=== PATIENT | female | born 1935 | race Caucasian/White ===

== ENCOUNTER 2019-10-04 19:42 | Inpatient (IN) | payer MEDICARE, BC ==
[2019-10-04] MEDS ORDERED: IPRATROPIUM-ALBUTEROL 3 ML NEB INHALATION STA ×2 (20:00→20:27)
--- NOTE | 2019-10-04 20:14 | XR ---
EXAMINATION TYPE: XR chest 2V DATE OF EXAM: 10/04/2019 COMPARISON: NONE HISTORY: History of COPD and atrial fibrillation with shortness of breath TECHNIQUE: Frontal and lateral views of the chest are obtained. FINDINGS: There is cardiomegaly with dual lead pacemaker and atherosclerotic aorta. There is chronic parenchymal change bilaterally with small bilateral pleural effusions and mild interstitial edema. The osseous structures are intact. IMPRESSION: Suspect CHF exacerbation as there is cardiomegaly with mild interstitial edema and small bilateral pleural effusions on background chronic parenchymal change. Correlate clinically.
[2019-10-04] MEDS ORDERED: FUROSEMIDE 10 MG/ML 4 ML VIAL IV STA ×2 (20:27→22:03)
[2019-10-04] MEDS ORDERED: methylPREDNISolone SOD SUCCI 125 MG/2 ML VIAL IV STA (20:27)
[2019-10-04] MEDS ORDERED: IPRATROPIUM 0.5 MG/2.5 ML NEBU INHALATION STA (20:33)
[2019-10-04] MEDS ORDERED: ALBUTEROL NEBULIZED 2.5 MG/3 ML INHALATION STA (20:33)
--- NOTE | 2019-10-04 20:50 | ED ---
General Adult HPI - General Chief complaint: Abdominal Pain Stated complaint: abd pain Source: patient, EMS, RN notes reviewed, old records reviewed Mode of arrival: EMS Limitations: no limitations - History of Present Illness Initial comments: 83-year-old female patient past medical history COPD, hypertension, status post AICD, CHF presents to ED for evaluation after transfer from [facility]. Patient has had epigastric pain for the last 4 days. Patient had evaluation at [facility] where she underwent a CT abdomen and pelvis which displayed findings consistent with acute cholecystitis. Patient was initiated on Zosyn at that apartment. Upon evaluation in ED patient is declining abdominal pain this time however she does report that she has developed some shortness of breath which began getting worse the last 2 hours. Patient does use regular breathing treatments for her COPD has not had any today. Denies any chest pain. Denies any other complaints at this time. Systemic: Pt denies fatigue, fever/chills, rash. Pt denies weakness, night sweats, weight loss. Neuro: Pt denies headache, visual disturbances, syncope or pre-syncope. HEENT: Pt denies ocular discharge or irritation, otalgia, rhinorrhea, pharyngitis or notable lymphadenopathy. Cardiopulmonary: Pt denies chest pain, heart palpitations. Abdominal/GI: Pt denies abdominal pain, n/v/d. : Pt denies dysuria, burning w/ urination, frequency/urgency. Denies new onset urinary or bowel incontinence. MSK: Pt denies myalgia, loss of strength or function in extremities. Neuro: Pt denies new onset weakness, paresthesias. - Related Data Home Medications Medication Instructions Recorded Confirmed Diltiazem HCl [Diltiazem HCl 24Hr 180 mg PO DAILY 10/04/19 10/04/19 ER] Flecainide Acetate [Tambocor] 100 mg PO Q12HR 10/04/19 10/04/19 Furosemide [Lasix] 40 mg PO DAILY 10/04/19 10/04/19 Rivaroxaban [Xarelto] 15 mg PO W/SUPPER 10/04/19 10/04/19 Allergies Allergy/AdvReac Type Severity Reaction Status Date / Time No Known Allergies Allergy Verified 10/04/19 22:00 Review of Systems ROS Statement: Those systems with pertinent positive or pertinent negative responses have been documented in the HPI. ROS Other: All systems not noted in ROS Statement are negative. Past Medical History Past Medical History: COPD, Hypertension History of Any Multi-Drug Resistant Organisms: None Reported Additional Past Surgical History / Comment(s): hysterectomy, tonsils Past Psychological History: No Psychological Hx Reported Smoking Status: Former smoker Past Alcohol Use History: None Reported Past Drug Use History: None Reported General Exam - General Exam Comments Initial Comments: Constitutional: NAD, AOX3, Pt has pleasant affect. HEENT: NC/AT, trachea midline. External ears appear normal, without discharge. Mucous membranes moist. Eyes PERRLA, EOM intact. There is no scleral icterus. No pallor noted. Cardiopulmonary: RRR, no murmurs, rubs or gallops, no JVD noted. Wheezing noted in anterior and posterior lung calle. Crackles noted at bases. No peripheral edema. Abdominal exam: Abdomen soft and non-distended. Abdomen mildly tender in epigastric region. Bowel sounds active in LLQ. No hepatosplenomegaly. No ecchymosis Neuro: CN II-XII grossly intact. No nuchal rigidity. No raccon eyes, no bear sign, no hemotympanum. No cervical spinal tenderness. MSK: No posterior calf tenderness bilaterally, homans sign negative bilaterally. Posterior tibialis and radial pulse +2 bilaterally. Sensation intact in upper and lower extremities. Full active ROM in upper and lower extremities, 5/5 stregnth. Limitations: no limitations Course Vital Signs 10/04/19 10/04/19 10/04/19 19:47 19:58 20:11 Temperature 98.5 F Pulse Rate 70 90 Respiratory 18 18 Rate Blood Pressure 137/88 O2 Sat by Pulse 92 L Oximetry 10/04/19 10/04/19 10/04/19 20:21 20:41 21:16 Temperature Pulse Rate 86 89 77 Respiratory Rate Blood Pressure O2 Sat by Pulse Oximetry 10/04/19 10/04/19 21:47 22:25 Temperature Pulse Rate 70 70 Respiratory 18 24 Rate Blood Pressure 143/87 138/81 O2 Sat by Pulse 89 L 97 Oximetry Medical Decision Making - Medical Decision Making 83-year-old female patient presents to ED after transfer from [facility] for acute cholecystitis diagnosed by CAT scan. Upon evaluation patient for further epigastric pain has resolved she only has mild tenderness to the epigastric region however her shortness of breath has worsened. Patient has a history of COPD as well as congestive heart failure. She will signs when the low 90s work of breathing did increase. Patient denies any chest pain. Patient is an AICD paced rhythm. Laboratory investigations revealed leukocytosis. Transaminitis.: A 1.38 which appears consistent with prior laboratory investigations from [facility]. BNP was 6280. Chest x-ray consistent with congestive heart failure exacerbation. Patient was administered breathing treatments with minimal improvement. Patient was placed on BiPAP for she had significant improvement. Continues to deny any chest pain. Patient was also administered steroids, Lasix. Patient was continued on Zosyn. Patient be admitted for further evaluation. Case discussed and pt seen by Dr. Whitney. - Lab Data Result diagrams: 10/04/19 20:37 10/04/19 20:37 Lab Results 10/04/19 10/04/19 10/04/19 Range/Units 20:37 20:37 20:37 WBC 14.7 H (3.8-10.6) k/uL RBC 4.97 (3.80-5.40) m/uL Hgb 14.3 (11.4-16.0) gm/dL Hct 45.4 (34.0-46.0) % MCV 91.4 (80.0-100.0) fL MCH 28.8 (25.0-35.0) pg MCHC 31.5 (31.0-37.0) g/dL RDW 13.8 (11.5-15.5) % Plt Count 278 (150-450) k/uL Neutrophils % 74 % Lymphocytes % 14 % Monocytes % 9 % Eosinophils % 1 % Basophils % 1 % Neutrophils # 10.8 H (1.3-7.7) k/uL Lymphocytes # 2.0 (1.0-4.8) k/uL Monocytes # 1.4 H (0-1.0) k/uL Eosinophils # 0.2 (0-0.7) k/uL Basophils # 0.1 (0-0.2) k/uL PT 13.5 H (9.0-12.0) sec INR 1.4 H (<1.2) APTT 25.5 (22.0-30.0) sec Sodium 131 L (137-145) mmol/L Potassium 4.4 (3.5-5.1) mmol/L Chloride 98 (98-107) mmol/L Carbon Dioxide 19 L (22-30) mmol/L Anion Gap 14 mmol/L BUN 29 H (7-17) mg/dL Creatinine 1.38 H (0.52-1.04) mg/dL Est GFR (CKD-EPI)AfAm 41 (>60 ml/min/1.73 sqM) Est GFR (CKD-EPI)NonAf 36 (>60 ml/min/1.73 sqM) Glucose 108 H (74-99) mg/dL Calcium 8.6 (8.4-10.2) mg/dL Total Bilirubin 1.0 (0.2-1.3) mg/dL AST 106 H (14-36) U/L ALT 132 H (4-34) U/L Alkaline Phosphatase 148 H (38-126) U/L Troponin I (0.000-0.034) ng/mL NT-Pro-B Natriuret Pep pg/mL Total Protein 6.4 (6.3-8.2) g/dL Albumin 3.9 (3.5-5.0) g/dL Lipase (23-300) U/L 10/04/19 10/04/19 10/04/19 Range/Units 20:37 20:37 20:37 WBC (3.8-10.6) k/uL RBC (3.80-5.40) m/uL Hgb (11.4-16.0) gm/dL Hct (34.0-46.0) % MCV (80.0-100.0) fL MCH (25.0-35.0) pg MCHC (31.0-37.0) g/dL RDW (11.5-15.5) % Plt Count (150-450) k/uL Neutrophils % % Lymphocytes % % Monocytes % % Eosinophils % % Basophils % % Neutrophils # (1.3-7.7) k/uL Lymphocytes # (1.0-4.8) k/uL Monocytes # (0-1.0) k/uL Eosinophils # (0-0.7) k/uL Basophils # (0-0.2) k/uL PT (9.0-12.0) sec INR (<1.2) APTT (22.0-30.0) sec Sodium (137-145) mmol/L Potassium (3.5-5.1) mmol/L Chloride (98-107) mmol/L Carbon Dioxide (22-30) mmol/L Anion Gap mmol/L BUN (7-17) mg/dL Creatinine (0.52-1.04) mg/dL Est GFR (CKD-EPI)AfAm (>60 ml/min/1.73 sqM) Est GFR (CKD-EPI)NonAf (>60 ml/min/1.73 sqM) Glucose (74-99) mg/dL Calcium (8.4-10.2) mg/dL Total Bilirubin (0.2-1.3) mg/dL AST (14-36) U/L ALT (4-34) U/L Alkaline Phosphatase (38-126) U/L Troponin I 0.015 (0.000-0.034) ng/mL NT-Pro-B Natriuret Pep 6280 pg/mL Total Protein (6.3-8.2) g/dL Albumin (3.5-5.0) g/dL Lipase 86 (23-300) U/L Disposition Clinical Impression: CHF exacerbation, Acute cholecystitis Disposition: ADMITTED IP TO THIS HOSP Condition: Serious Is patient prescribed a controlled substance at d/c from ED?: No
[2019-10-04 20:57] LABS: Basophils # (A) 0.1 k/uL (0-0.2); Basophils % (A) 1 %; Eosinophils # (A) 0.2 k/uL (0-0.7); Eosinophils % (A) 1 %; HCT 45.4 % (34.0-46.0); HGB 14.3 gm/dL (11.4-16.0); Lymphocytes % (A) 14 %; MCH 28.8 pg (25.0-35.0); MCHC 31.5 g/dL (31.0-37.0); MCV 91.4 fL (80.0-100.0); Mean Platelet Volume 8.8; Monocytes # (A) 1.4 k/uL (0-1.0); Monocytes % (A) 9 %; Neutrophils # (A) 10.8 k/uL (1.3-7.7); Neutrophils % (A) 74 %; Platelet Count 278 k/uL (150-450); RBC 4.97 m/uL (3.80-5.40); RDW 13.8 % (11.5-15.5); WBC 14.7 k/uL (3.8-10.6)
[2019-10-04 21:08] LABS: INR 1.4 (<1.2); Partial Thromboplastin Time 25.5 sec (22.0-30.0); Prothrombin Time 13.5 sec (9.0-12.0)
[2019-10-04 21:09] LABS: Albumin 3.9 g/dL (3.5-5.0); Calcium 8.6 mg/dL (8.4-10.2); Potassium 4.4 mmol/L (3.5-5.1); Total Protein 6.4 g/dL (6.3-8.2)
[2019-10-04] MEDS ORDERED: PIPERACILLIN-TAZOBACTAM 3.375 GM in SODIUM CHLORIDE 0.9% 100 ML IVPB STA (21:51)
[2019-10-04] MEDS ORDERED: NITROGLYCERIN SL TABS 0.4 MG TAB SUBLINGUAL STA (22:05)
[2019-10-05] MEDS: PIPERACILLIN-TAZOBACTAM 3.375 GM in SODIUM CHLORIDE 0.9% 100 ML IVPB SCH ×4 (04:22→23:05)
[2019-10-05 06:37] LABS: Basophils % (A) 0 %; Eosinophils # (A) 0.1 k/uL (0-0.7); Eosinophils % (A) 1 %; HCT 39.8 % (34.0-46.0); HGB 13.2 gm/dL (11.4-16.0); Hypochromasia Slight; Lymphocytes # (A) 0.4 k/uL (1.0-4.8); Lymphocytes % (A) 6 %; MCH 30.3 pg (25.0-35.0); MCV 91.8 fL (80.0-100.0); Mean Platelet Volume 8.7; Monocytes # (A) 0.2 k/uL (0-1.0); Monocytes % (A) 2 %; Neutrophils # (A) 5.9 k/uL (1.3-7.7); Neutrophils % (A) 91 %; Platelet Count 212 k/uL (150-450); RBC 4.34 m/uL (3.80-5.40); RDW 13.9 % (11.5-15.5); WBC 6.5 k/uL (3.8-10.6)
[2019-10-05 06:49] LABS: Albumin 3.2 g/dL (3.5-5.0); Calcium 7.9 mg/dL (8.4-10.2); Potassium 3.8 mmol/L (3.5-5.1); Total Bilirubin 0.7 mg/dL (0.2-1.3); Total Protein 5.5 g/dL (6.3-8.2)
--- NOTE | 2019-10-05 07:31 | XR ---
EXAMINATION TYPE: XR chest 2V DATE OF EXAM: 10/05/2019 COMPARISON: Chest x-ray from yesterday. HISTORY: History of COPD and atrial fibrillation with pain, cholecystitis. TECHNIQUE: Frontal and lateral views of the chest are obtained. FINDINGS: There is cardiomegaly with dual lead pacemaker and atherosclerotic thoracic aorta redemons trated. There is chronic parenchymal change bilaterally with small right greater than left bilateral pleural effusions and associated bibasilar atelectasis and/or infiltrate. Multilevel spurring in the spine greatest in the thoracolumbar junction is present IMPRESSION: Persistent chronic parenchymal change and cardiomegaly with small to tiny right greater than left pleural effusions and associated patchy bibasilar acute atelectasis and/or infiltrates are all redemonstrated.
[2019-10-05] MEDS ORDERED: FUROSEMIDE 40 MG TAB PO SCH (09:00)
[2019-10-05] MEDS: IPRATROPIUM-ALBUTEROL 3 ML NEB INHALATION SCH ×4 (09:12→20:41)
[2019-10-05] MEDS: FLECAINIDE 50 MG TAB PO SCH ×2 (09:20→21:07)
[2019-10-05] MEDS: DILTIAZEM CD 180 MG CAP.ER.24H PO SCH (09:20)
--- NOTE | 2019-10-05 09:29 | P.CRDCN ---
History of Present Illness Consult date: 10/05/19 Requesting physician: Cristin Zacarias Consult reason: congestive heart failure Chief complaint: Right upper quadrant abdominal pain History of present illness: This is a pleasant 83-year-old female with documented history of hypertension, COPD, prior history of smoking, she quit smoking several years ago, history of paroxysmal atrial fibrillation, history of permanent pacemaker implantation. 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 She presented to [facility] with symptoms of right upper quadrant discomfort, associated nausea and decreased appetite which she states that she's been experiencing for 3-4 days prior to presenting there. Her symptoms would be a ggravated by eating certain foods, such as bermudian fries. Her blood pressure on arrival here 122/80 with a heart rate in the 60s, 92% on room air. Laboratory data that was performed at [facility], white blood cell count was 11.8, hemoglobin 13.7, platelet count 254, sodium 1:30, potassium 4.3, BUN 34, creatinine 1.5, AST 101, ALT 133, alk phos 142. Magnesium 2.0, troponin 0.014. EKG showed a ventricular paced rhythm patient underwent a CT of the abdomen and pelvis at [facility] which revealed a probable acute cholecystitis with reactive inflammatory changes in the right upper and mid abdomen. According to the patient, she was transferred here to [facility] for further surgical evaluation, on the ride here she states that she was quite short of breath. She denies having any chest discomfort. Patient was seen by the surgeon this morning with the plan to perform surgery at some point during this admission. Her blood pressure here 132/60 with a heart rate in the 70s, 95% on 4 L of oxygen. White blood cell count here 14.7, 6.5 this morning, hemoglobin 13.2, platelet count 212. INR 1.4. Sodium 134, potassium 3.8, BUN 32, creatinine 1.3. AST 71 this morning, ALT 111, alk phos 108. Troponin 0.015, BNP 6280. Patient was given a one-time dose of IV Lasix, and started on oral diuretics. At the time of my examination this morning her abdominal discomfort is signifi cantly resolved, she is lying flat in bed with no difficulty in breathing. She does have bilateral diminished air entry. Past Medical History Past Medical History: COPD, Hypertension History of Any Multi-Drug Resistant Organisms: None Reported Additional Past Surgical History / Comment(s): hysterectomy, tonsils Past Anesthesia/Blood Transfusion Reactions: Unable to Obtain Past Psychological History: No Psychological Hx Reported Smoking Status: Former smoker Past Alcohol Use History: None Reported Past Drug Use History: None Reported Medications and Allergies Home Medications Medication Instructions Recorded Confirmed Type Diltiazem HCl [Diltiazem HCl 24Hr 180 mg PO DAILY 10/04/19 10/04/19 History ER] Flecainide Acetate [Tambocor] 100 mg PO Q12HR 10/04/19 10/04/19 History Furosemide [Lasix] 40 mg PO DAILY 10/04/19 10/04/19 History Rivaroxaban [Xarelto] 15 mg PO W/SUPPER 10/04/19 10/04/19 History Allergies Allergy/AdvReac Type Severity Reaction Status Date / Time No Known Allergies Allergy Verified 10/04/19 22:00 Physical Exam Vitals: Vital Signs Temp Pulse Pulse Resp BP BP Pulse Ox 10/05/19 04:00 97.6 F 70 15 133/65 95 10/05/19 00:10 94 L 10/05/19 00:00 97.6 F 70 17 141/70 94 L 10/04/19 23:45 97.6 F 70 16 141/70 94 L 10/04/19 22:25 70 24 138/81 97 10/04/19 21:47 70 18 143/87 89 L 10/04/19 21:16 77 10/04/19 20:41 89 10/04/19 20:21 86 10/04/19 20:11 90 10/04/19 19:58 18 10/04/19 19:47 98.5 F 70 18 137/88 92 L Intake and Output 10/04/19 10/05/19 10/05/19 22:59 06:59 14:59 Other: Voiding Method Toilet Weight 53.07 kg 54.9 kg PHYSICAL EXAMINATION: GENERAL: 83-year-old female in no acute distress at the time of my examination HEENT: Head is atraumatic, normocephalic. Pupils equal, round. Sclera anicteric. Conjunctiva are clear. Mucous membranes of the mouth are moist. Neck is supple. There is no elevated jugular venous pressure. No carotid bruit is heard. HEART EXAMINATION: Heart S1, S2 normal. No murmur or gallop heard. CHEST EXAMINATION: Lungs reveal diminished air entry to the bases bilaterally ABDOMEN: Soft, mild right upper quadrant tenderness on deep palpation . Bowel sounds are heard. No organomegaly noted. EXTREMITIES: 2+ peripheral pulses with no evidence of peripheral edema and no calf tenderness noted. NEUROLOGIC patient is awake, alert and oriented 3 . . Results 10/05/19 06:08 10/05/19 06:08 Cardiac Enzymes 10/04/19 10/04/19 10/05/19 Range/Units 20:37 20:37 06:08 AST 106 H 71 H (14-36) U/L Troponin I 0.015 (0.000-0.034) ng/mL Coagulation 10/04/19 Range/Units 20:37 PT 13.5 H (9.0-12.0) sec APTT 25.5 (22.0-30.0) sec CBC 10/04/19 10/05/19 Range/Units 20:37 06:08 WBC 14.7 H 6.5 (3.8-10.6) k/uL RBC 4.97 4.34 (3.80-5.40) m/uL Hgb 14.3 13.2 (11.4-16.0) gm/dL Hct 45.4 39.8 (34.0-46.0) % Plt Count 278 212 (150-450) k/uL Comprehensive Metabolic Panel 10/04/19 10/05/19 Range/Units 20:37 06:08 Sodium 131 L 134 L (137-145) mmol/L Potassium 4.4 3.8 (3.5-5.1) mmol/L Chloride 98 101 (98-107) mmol/L Carbon Dioxide 19 L 24 (22-30) mmol/L BUN 29 H 32 H (7-17) mg/dL Creatinine 1.38 H 1.33 H (0.52-1.04) mg/dL Glucose 108 H 180 H (74-99) mg/dL Calcium 8.6 7.9 L (8.4-10.2) mg/dL AST 106 H 71 H (14-36) U/L ALT 132 H 111 H (4-34) U/L Alkaline Phosphatase 148 H 108 (38-126) U/L Total Protein 6.4 5.5 L (6.3-8.2) g/dL Albumin 3.9 3.2 L (3.5-5.0) g/dL Current Medications Generic Name Dose Route Start Last Admin Trade Name Freq PRN Reason Stop Dose Admin Albuterol/Ipratropium 3 ml 10/05/19 08:00 Duoneb 0.5 Mg-3 Mg/3 Ml Soln INHALATION RT-QID PEYTON Diltiazem HCl 180 mg 10/05/19 09:00 Cardizem Cd PO DAILY PEYTON Flecainide Acetate 100 mg 10/05/19 09:00 Tambocor PO Q12HR PEYTON Furosemide 40 mg 10/05/19 09:00 Lasix PO DAILY PEYTON Piperacillin Sod/Tazobactam 100 mls @ 25 mls/hr 10/05/19 00:00 10/05/19 04:22 Sod 3.375 gm/ Sodium Chloride IVPB Not Given Q8HR PEYTON Intake and Output 10/04/19 10/05/19 10/05/19 22:59 06:59 14:59 Other: Voiding Method Toilet Weight 53.07 kg 54.9 kg 10/05/19 06:08 10/05/19 06:08 EKG Interpretations (text) EKG shows a ventricular paced rhythm with underlying normal sinus rhythm Assessment and Plan Plan: Assessment and plan #1 right upper quadrant abdominal pain with associated nausea and decreased appetite. CT of the abdomen performed at [place] showed probable acute cholecystitis #2 hypertension #3 prior history of smoking #4 COPD #5 paroxysmal atrial fibrillation, on Xarelto for anticoagulation, currently on hold #6 congestive heart failure, LV function unknown Plan We will give the patient IV Lasix for 24 hours. Xarelto has been on hold since yesterday for the plan of probable surgery. We will obtain an echocardiogram with Doppler study. Further recommendations to follow. DNP note has been reviewed, I agree with a documented findings and plan of care. Patient was seen and examined.
[2019-10-05] MEDS: FUROSEMIDE 10 MG/ML 4 ML VIAL IV SCH ×2 (11:16→21:13)
--- NOTE | 2019-10-05 11:18 | P.HPIM ---
History of Present Illness this is a pleasant 83 years old female with past medical history of COPD, hypertension. Patient was transferred from [facility] for possible acute cholecystitis found on CT of the abdomen and pelvis related to abdominal pain/discomfort of 4 day duration. Patient was started on Zosyn however on emergency room at this hospital patient was complaining of from shortness of breath for 2 hours without chest pain.patient was placed on BiPAP and diuretics and this morning patient feels better She is fully awake and oriented, she is breathing quietly on room air, she denies chest pain or abdominal pain or discomfort. No nausea or vomiting. She has loose stool. She quit smoking many years ago, occasional wine. No illicit drugs Vitas looks stable.labs showed leukocytosis of 14.7 K, came back to normal 6.5K. INR 1.4, sodium 134, creatinine 1.3, unknown baseline.liver enzymes are trending down. she is currently on Lasix 40 mg twice daily,Also she is on Zosyn and breathing treatment. cardiology and surgery services were consulted. N.B patient chart was not available to review her [facility] papers, we will follow up Review of Systems CONSTITUTIONAL: No fever, no malaise, no fatigue. HEENT: No recent visual problems or hearing problems. Denied any sore throat. CARDIOVASCULAR: No orthopnea, PND, no palpitations, no syncope. PULMONARY: No shortness of breath, no cough, no hemoptysis. GASTROINTESTINAL: No diarrhea, no nausea, no vomiting, no abdominal pain. Normoactive bowel sounds. NEUROLOGICAL: No headaches, no weakness, no numbness. HEMATOLOGICAL: Denies any bleeding or petechiae. GENITOURINARY: Denies any burning micturition, frequency, or urgency. MUSCULOSKELETAL/RHEUMATOLOGICAL: Denies any joint pain, swelling, or any muscle pain. ENDOCRINE: Denies any polyuria or polydipsia. Past Medical History Past Medical History: COPD, Hypertension History of Any Multi-Drug Resistant Organisms: None Reported Additional Past Surgical History / Comment(s): hysterectomy, tonsils Past Anesthesia/Blood Transfusion Reactions: Unable to Obtain Past Psychological History: No Psychological Hx Reported Smoking Status: Former smoker Past Alcohol Use History: None Reported Past Drug Use History: None Reported Medications and Allergies Home Medications Medication Instructions Recorded Confirmed Type Diltiazem HCl [Diltiazem HCl 24Hr 180 mg PO DAILY 10/04/19 10/04/19 History ER] Flecainide Acetate [Tambocor] 100 mg PO Q12HR 10/04/19 10/04/19 History Furosemide [Lasix] 40 mg PO DAILY 10/04/19 10/04/19 History Rivaroxaban [Xarelto] 15 mg PO W/SUPPER 10/04/19 10/04/19 History Allergies Allergy/AdvReac Type Severity Reaction Status Date / Time No Known Allergies Allergy Verified 10/04/19 22:00 Physical Exam Vitals: Vital Signs Temp Pulse Pulse Resp BP BP Pulse Ox 10/05/19 09:35 70 15 10/05/19 09:24 80 10/05/19 09:12 76 10/05/19 04:00 97.6 F 70 15 133/65 95 10/05/19 00:10 94 L 10/05/19 00:00 97.6 F 70 17 141/70 94 L 10/04/19 23:45 97.6 F 70 16 141/70 94 L 10/04/19 22:25 70 24 138/81 97 10/04/19 21:47 70 18 143/87 89 L 10/04/19 21:16 77 10/04/19 20:41 89 10/04/19 20:21 86 10/04/19 20:11 90 10/04/19 19:58 18 10/04/19 19:47 98.5 F 70 18 137/88 92 L Intake and Output 10/04/19 10/05/19 10/05/19 22:59 06:59 14:59 Other: Voiding Method Toilet Toilet Weight 53.07 kg 54.9 kg GENERAL: The patient is alert and oriented x3, not in any acute distress. Well developed, well nourished. HEENT: Pupils are round and equally reacting to light. EOMI. No scleral icterus. No conjunctival pallor. Normocephalic, atraumatic. No pharyngeal erythema. No thyromegaly. CARDIOVASCULAR: S1 and S2 present. No murmurs, rubs, or gallops. -PULMONARY: Chest is clear to auscultation, no wheezing . mild bilateral basal crepitation -ABDOMEN: Soft, nontender, nondistended, normoactive bowel sounds. No palpable o rganomegaly. Howell sign is absent or acute cholecystitis MUSCULOSKELETAL: No joint swelling or deformity. EXTREMITIES: No cyanosis, clubbing, or pedal edema. NEUROLOGICAL: Gross neurological examination did not reveal any focal deficits. SKIN: No rashes. No petechiae Results CBC & Chem 7: 10/05/19 06:08 10/05/19 06:08 Labs: Abnormal Lab Results - Last 24 Hours (Table) 10/04/19 10/04/19 10/04/19 Range/Units 20:37 20:37 20:37 WBC 14.7 H (3.8-10.6) k/uL Neutrophils # 10.8 H (1.3-7.7) k/uL Lymphocytes # (1.0-4.8) k/uL Monocytes # 1.4 H (0-1.0) k/uL PT 13.5 H (9.0-12.0) sec INR 1.4 H (<1.2) Sodium 131 L (137-145) mmol/L Carbon Dioxide 19 L (22-30) mmol/L BUN 29 H (7-17) mg/dL Creatinine 1.38 H (0.52-1.04) mg/dL Glucose 108 H (74-99) mg/dL Calcium (8.4-10.2) mg/dL AST 106 H (14-36) U/L ALT 132 H (4-34) U/L Alkaline Phosphatase 148 H (38-126) U/L Total Protein (6.3-8.2) g/dL Albumin (3.5-5.0) g/dL 10/05/19 10/05/19 Range/Units 06:08 06:08 WBC (3.8-10.6) k/uL Neutrophils # (1.3-7.7) k/uL Lymphocytes # 0.4 L (1.0-4.8) k/uL Monocytes # (0-1.0) k/uL PT (9.0-12.0) sec INR (<1.2) Sodium 134 L (137-145) mmol/L Carbon Dioxide (22-30) mmol/L BUN 32 H (7-17) mg/dL Creatinine 1.33 H (0.52-1.04) mg/dL Glucose 180 H (74-99) mg/dL Calcium 7.9 L (8.4-10.2) mg/dL AST 71 H (14-36) U/L ALT 111 H (4-34) U/L Alkaline Phosphatase (38-126) U/L Total Protein 5.5 L (6.3-8.2) g/dL Albumin 3.2 L (3.5-5.0) g/dL Thrombosis Risk Factor Assmnt - Choose All That Apply Any of the Below Risk Factors Present?: Yes Each Factor Represents 1 point: Abnormal pulmonary function (COPD), Heart failure (<1month) Other Risk Factors: Yes Each Risk Factor Represents 3 Points: Age 75 years or older Other congenital or acquired thrombophilia - If yes, enter type in comment: No Thrombosis Risk Factor Assessment Total Risk Factor Score: 5 Thrombosis Risk Factor Assessment Level: High Risk Assessment and Plan Assessment: acute and chronic congestive heart failure, status post AICD acute cholecystitis Acute kidney injury versus chronic kidney disease, unknown baseline hypertension COPD, not an active issue Plan: this is a pleasant 83 years old female who presents with CHF and cholecystitis. Cardiology service and surgery service for consulted. Continue with Zosyn. Continue with diuretics. Echocardiogram. Labs and medication were reviewed.. Continue same treatment. Continue with symptomatic treatment. Resume home medication. Monitor lytes and vitals. DVT and GI prophylaxis. Further recommendations of the clinical course of the patient DVT prophylaxis: Subcutaneous heparin GI Prophylaxis: Pepcid PT/OT: Pending Prognosis is guarded
--- NOTE | 2019-10-05 12:25 | P.GSCN ---
History of Present Illness Consult date: 10/05/19 History of present illness: 83-year-old female presented to the hospital as a transfer from outside facility secondary to concern for acute cholecystitis. She states that over the past 4 days she has began to have pain in the epigastrium and right upper quadrant along with fullness. She states that she has not had this symptomatology previously. She denies any nausea or vomiting episodes. While in the emergency department, she also developed shortness of breath was found to likely be in CHF exacerbation. She was started on antibiotics today states that she is feeling much better. CT of the abdomen and pelvis was performed at the outside facility which was concerning for fluid around the gallbladder for cholecystitis. Denies any fevers, chills, chest pain at this time. Review of Systems All systems: negative Past Medical History Past Medical History: COPD, Hypertension History of Any Multi-Drug Resistant Organisms: None Reported Additional Past Surgical History / Comment(s): hysterectomy, tonsils Past Anesthesia/Blood Transfusion Reactions: Unable to Obtain Past Psychological History: No Psychological Hx Reported Smoking Status: Former smoker Past Alcohol Use History: None Reported Past Drug Use History: None Reported Medications and Allergies Home Medications Medication Instructions Recorded Confirmed Type Diltiazem HCl [Diltiazem HCl 24Hr 180 mg PO DAILY 10/04/19 10/04/19 History ER] Flecainide Acetate [Tambocor] 100 mg PO Q12HR 10/04/19 10/04/19 History Furosemide [Lasix] 40 mg PO DAILY 10/04/19 10/04/19 History Rivaroxaban [Xarelto] 15 mg PO W/SUPPER 10/04/19 10/04/19 History Allergies Allergy/AdvReac Type Severity Reaction Status Date / Time No Known Allergies Allergy Verified 10/04/19 22:00 Surgical - Exam Osteopathic Statement: *. No significant issues noted on an osteopathic structural exam other than those noted in the History and Physical/Consult. Vital Signs Temp Pulse Resp BP Pulse Ox 98.5 F 70 18 137/88 92 L 10/04/19 19:47 10/04/19 19:47 10/04/19 19:47 10/04/19 19:47 10/04/19 19:47 - General well nourished, no distress - Eyes normal ocular movement - ENT normal mucosa, no hearing loss - Respiratory normal respiratory effort - Abdomen soft, nontender, nondistended, no rebound, no guarding - Psychiatric oriented to time, oriented to person, oriented to place Results - Labs 10/05/19 06:08 10/05/19 06:08 Abnormal Lab Results - Last 24 Hours (Table) 10/04/19 10/04/19 10/04/19 Range/Units 20:37 20:37 20:37 WBC 14.7 H (3.8-10.6) k/uL Neutrophils # 10.8 H (1.3-7.7) k/uL Lymphocytes # (1.0-4.8) k/uL Monocytes # 1.4 H (0-1.0) k/uL PT 13.5 H (9.0-12.0) sec INR 1.4 H (<1.2) Sodium 131 L (137-145) mmol/L Carbon Dioxide 19 L (22-30) mmol/L BUN 29 H (7-17) mg/dL Creatinine 1.38 H (0.52-1.04) mg/dL Glucose 108 H (74-99) mg/dL Calcium (8.4-10.2) mg/dL AST 106 H (14-36) U/L ALT 132 H (4-34) U/L Alkaline Phosphatase 148 H (38-126) U/L Total Protein (6.3-8.2) g/dL Albumin (3.5-5.0) g/dL 10/05/19 10/05/19 Range/Units 06:08 06:08 WBC (3.8-10.6) k/uL Neutrophils # (1.3-7.7) k/uL Lymphocytes # 0.4 L (1.0-4.8) k/uL Monocytes # (0-1.0) k/uL PT (9.0-12.0) sec INR (<1.2) Sodium 134 L (137-145) mmol/L Carbon Dioxide (22-30) mmol/L BUN 32 H (7-17) mg/dL Creatinine 1.33 H (0.52-1.04) mg/dL Glucose 180 H (74-99) mg/dL Calcium 7.9 L (8.4-10.2) mg/dL AST 71 H (14-36) U/L ALT 111 H (4-34) U/L Alkaline Phosphatase (38-126) U/L Total Protein 5.5 L (6.3-8.2) g/dL Albumin 3.2 L (3.5-5.0) g/dL Diabetes panel 10/04/19 10/05/19 Range/Units 20:37 06:08 Sodium 131 L 134 L (137-145) mmol/L Potassium 4.4 3.8 (3.5-5.1) mmol/L Chloride 98 101 (98-107) mmol/L Carbon Dioxide 19 L 24 (22-30) mmol/L BUN 29 H 32 H (7-17) mg/dL Creatinine 1.38 H 1.33 H (0.52-1.04) mg/dL Glucose 108 H 180 H (74-99) mg/dL Calcium 8.6 7.9 L (8.4-10.2) mg/dL AST 106 H 71 H (14-36) U/L ALT 132 H 111 H (4-34) U/L Alkaline Phosphatase 148 H 108 (38-126) U/L Total Protein 6.4 5.5 L (6.3-8.2) g/dL Albumin 3.9 3.2 L (3.5-5.0) g/dL Calcium panel 10/04/19 10/05/19 Range/Units 20:37 06:08 Calcium 8.6 7.9 L (8.4-10.2) mg/dL Albumin 3.9 3.2 L (3.5-5.0) g/dL Pituitary panel 10/04/19 10/05/19 Range/Units 20:37 06:08 Sodium 131 L 134 L (137-145) mmol/L Potassium 4.4 3.8 (3.5-5.1) mmol/L Chloride 98 101 (98-107) mmol/L Carbon Dioxide 19 L 24 (22-30) mmol/L BUN 29 H 32 H (7-17) mg/dL Creatinine 1.38 H 1.33 H (0.52-1.04) mg/dL Glucose 108 H 180 H (74-99) mg/dL Calcium 8.6 7.9 L (8.4-10.2) mg/dL Adrenal panel 10/04/19 10/05/19 Range/Units 20:37 06:08 Sodium 131 L 134 L (137-145) mmol/L Potassium 4.4 3.8 (3.5-5.1) mmol/L Chloride 98 101 (98-107) mmol/L Carbon Dioxide 19 L 24 (22-30) mmol/L BUN 29 H 32 H (7-17) mg/dL Creatinine 1.38 H 1.33 H (0.52-1.04) mg/dL Glucose 108 H 180 H (74-99) mg/dL Calcium 8.6 7.9 L (8.4-10.2) mg/dL Total Bilirubin 1.0 0.7 (0.2-1.3) mg/dL AST 106 H 71 H (14-36) U/L ALT 132 H 111 H (4-34) U/L Alkaline Phosphatase 148 H 108 (38-126) U/L Total Protein 6.4 5.5 L (6.3-8.2) g/dL Albumin 3.9 3.2 L (3.5-5.0) g/dL Assessment and Plan (1) Acute cholecystitis Narrative/Plan: 83yo with Acute cholecystitis along with CHF exacerbation. Currently, the patient is receiving a cardiologic work-up. She is also receiving treatment for CHF exacerbation. She states that her symptoms have improved with antibiotic therapy. Continue to hold anticoagulation and continue antibiotic therapy at this time prior to surgical management. I have recommended laparoscopic cholecystectomy to the patient. She is agreeable to this plan when she is cleared. Questions were encouraged and answered. Current Visit: Yes Status: Acute Code(s): K81.0 - ACUTE CHOLECYSTITIS SNOMED Code(s): 22214614
[2019-10-05] MEDS: HEPARIN SODIUM,PORCINE 5,000 UNIT/ML 1 ML VIAL SQ SCH ×2 (17:27→21:17)
[2019-10-05] MEDS ORDERED: FAMOTIDINE 20 MG/2 ML VIAL IV SCH (21:00)
[2019-10-05] MEDS: FAMOTIDINE 20 MG/2 ML VIAL IV SCH (21:12)
[2019-10-05] MEDS ORDERED: Acetaminophen-Codeine 300-30mg TAB PO PRN (23:03)
[2019-10-05] MEDS: ACETAMINOPHEN TAB 325 MG TAB PO PRN (23:09)
[2019-10-06] MEDS ORDERED: LORazepam 2 MG/ML INJ IV PRN (01:54)
[2019-10-06] MEDS ORDERED: HALOPERIDOL LACTATE 5 MG/ML 1 ML VIAL IVP PRN ×2 (01:56→01:58)
[2019-10-06 06:54] LABS: Basophils % (A) 0 %; Eosinophils % (A) 0 %; HCT 40.6 % (34.0-46.0); HGB 13.2 gm/dL (11.4-16.0); Hypochromasia Slight; Lymphocytes # (A) 0.5 k/uL (1.0-4.8); Lymphocytes % (A) 4 %; MCH 29.6 pg (25.0-35.0); MCHC 32.5 g/dL (31.0-37.0); Mean Platelet Volume 8.6; Monocytes # (A) 0.7 k/uL (0-1.0); Monocytes % (A) 6 %; Neutrophils # (A) 10.8 k/uL (1.3-7.7); Neutrophils % (A) 89 %; Platelet Count 204 k/uL (150-450); RBC 4.46 m/uL (3.80-5.40); RDW 13.8 % (11.5-15.5); WBC 12.1 k/uL (3.8-10.6)
[2019-10-06 07:05] LABS: Calcium 8.3 mg/dL (8.4-10.2); Magnesium 1.8 mg/dL (1.6-2.3); Potassium 3.5 mmol/L (3.5-5.1)
[2019-10-06] MEDS: IPRATROPIUM-ALBUTEROL 3 ML NEB INHALATION SCH ×4 (08:42→18:58)
[2019-10-06] MEDS: PIPERACILLIN-TAZOBACTAM 3.375 GM in SODIUM CHLORIDE 0.9% 100 ML IVPB SCH ×3 (09:06→23:21)
[2019-10-06] MEDS: DILTIAZEM CD 180 MG CAP.ER.24H PO SCH (09:07)
[2019-10-06] MEDS: FAMOTIDINE 20 MG/2 ML VIAL IV SCH (09:07)
[2019-10-06] MEDS: FUROSEMIDE 10 MG/ML 4 ML VIAL IV SCH ×2 (09:07→19:50)
[2019-10-06] MEDS: HEPARIN SODIUM,PORCINE 5,000 UNIT/ML 1 ML VIAL SQ SCH ×2 (09:07→19:50)
[2019-10-06] MEDS: FLECAINIDE 50 MG TAB PO SCH ×2 (09:07→19:51)
--- NOTE | 2019-10-06 10:53 | P.PN ---
Subjective this is a pleasant 83 years old female with past medical history of COPD, hypertension. Patient was transferred from [facility] for possible acute cholecystitis found on CT of the abdomen and pelvis related to abdominal pain/discomfort of 4 day duration. Patient was started on Zosyn however on emergency room at this hospital patient was complaining of from shortness of breath for 2 hours without chest pain.patient was placed on BiPAP and diuretics and this morning patient feels better She is fully awake and oriented, she is breathing quietly on room air, she denies chest pain or abdominal pain or discomfort. No nausea or vomiting. She has loose stool. She quit smoking many years ago, occasional wine. No illicit drugs Vitas looks stable.labs showed leukocytosis of 14.7 K, came back to normal 6.5K. INR 1.4, sodium 134, creatinine 1.3, unknown baseline.liver enzymes are trending down. she is currently on Lasix 40 mg twice daily,Also she is on Zosyn and breathing treatment. cardiology and surgery services were consulted. N.B patient chart was not available to review her [facility] papers, we will follow up 10/06/2019 Patient is fully awake and oriented, no significant dyspnea. No abdominal pain. Vitals are stable Creatinine is 1.26, electrolytes is normal. Cardiology on the case for possible CHF and also we'll ask for preop evaluation. Surgery team are planning for laparoscopic cholecystectomy Maryellen is on hold for possible surgical intervention Discussed with staff and hospice social worker Review of Systems CONSTITUTIONAL: No fever, no malaise, no fatigue. HEENT: No recent visual problems or hearing problems. Denied any sore throat. CARDIOVASCULAR: No orthopnea, PND, no palpitations, no syncope. PULMONARY: No shortness of breath, no cough, no hemoptysis. GASTROINTESTINAL: No diarrhea, no nausea, no vomiting, no abdominal pain. Normoactive bowel sounds. NEUROLOGICAL: No headaches, no weakness, no numbness. HEMATOLOGICAL: Denies any bleeding or petechiae. GENITOURINARY: Denies any burning micturition, frequency, or urgency. MUSCULOSKELETAL/RHEUMATOLOGICAL: Denies any joint pain, swelling, or any muscle pain. ENDOCRINE: Denies any polyuria or polydipsia. Active Medications Generic Name Dose Route Start Last Admin Trade Name Freq PRN Reason Stop Dose Admin Acetaminophen 650 mg 10/05/19 22:59 10/05/19 23:09 Tylenol Tab PO 650 mg Q4HR PRN Administration Fever and/ or Pain Acetaminophen/Codeine Phosphate 2 each 10/05/19 23:03 Tylenol #3 PO Q8HR PRN Pain Albuterol/Ipratropium 3 ml 10/05/19 08:00 10/06/19 08:42 Duoneb 0.5 Mg-3 Mg/3 Ml Soln INHALATION 3 ml RT-QID PEYTON Administration Diltiazem HCl 180 mg 10/05/19 09:00 10/06/19 09:07 Cardizem Cd PO 180 mg DAILY PEYTON Administration Famotidine 20 mg 10/05/19 21:00 10/06/19 09:07 Pepcid IV 20 mg DAILY PEYTON Administration Flecainide Acetate 100 mg 10/05/19 09:00 10/06/19 09:07 Tambocor PO 100 mg Q12HR PEYTON Administration Furosemide 40 mg 10/05/19 09:30 10/06/19 09:07 Lasix IV 40 mg Q12HR PEYTON Administration Haloperidol Lactate 0.5 mg 10/06/19 01:58 Haldol IVP Q4HR PRN Agitation or Acute Psychosis Heparin Sodium (Porcine) 5,000 unit 10/05/19 11:15 10/06/19 09:07 Heparin SQ 5,000 unit Q12HR PEYTON Administration Piperacillin Sod/Tazobactam 100 mls @ 25 mls/hr 10/05/19 00:00 10/06/19 09:06 Sod 3.375 gm/ Sodium Chloride IVPB 25 mls/hr Q8HR PEYTON Administration Lorazepam 0.5 mg 10/06/19 01:54 Ativan PO Q6H PRN Anxiety Lorazepam 0.5 mg 10/06/19 01:54 10/06/19 02:18 Ativan IV 0.5 mg Q6HR PRN Administration Anxiety Objective - Vital Signs Vital signs: Vital Signs Temp 97.4 F L 10/06/19 08:00 Pulse 72 10/06/19 08:55 Resp 18 10/06/19 08:00 BP 105/61 10/06/19 08:00 Pulse Ox 97 10/06/19 08:42 Intake & Output 10/05/19 10/06/19 10/06/19 18:59 06:59 18:59 Intake Total 240 240 Output Total 600 Balance 240 -360 Weight 52.4 kg Intake: Oral 240 240 Output: Urine 600 Other: Voiding Method Toilet Toilet Toilet # Voids 1 3 - Exam GENERAL: The patient is alert and oriented x3, not in any acute distress. Well developed, well nourished. HEENT: Pupils are round and equally reacting to light. EOMI. No scleral icterus. No conjunctival pallor. Normocephalic, atraumatic. No pharyngeal erythema. No thyromegaly. CARDIOVASCULAR: S1 and S2 present. No murmurs, rubs, or gallops. PULMONARY: Chest is clear to auscultation, no wheezing or crackles. ABDOMEN: Soft, nontender, nondistended, normoactive bowel sounds. No palpable organomegaly. MUSCULOSKELETAL: No joint swelling or deformity. EXTREMITIES: No cyanosis, clubbing, or pedal edema. NEUROLOGICAL: Gross neurological examination did not reveal any focal deficits. SKIN: No rashes. no petechiae. - Labs CBC & Chem 7: 10/06/19 06:05 10/06/19 06:05 Labs: Abnormal Lab Results - Last 24 Hours (Table) 10/06/19 10/06/19 Range/Units 06:05 06:05 WBC 12.1 H (3.8-10.6) k/uL Neutrophils # 10.8 H (1.3-7.7) k/uL Lymphocytes # 0.5 L (1.0-4.8) k/uL Carbon Dioxide 32 H (22-30) mmol/L BUN 23 H (7-17) mg/dL Creatinine 1.26 H (0.52-1.04) mg/dL Glucose 102 H (74-99) mg/dL Calcium 8.3 L (8.4-10.2) mg/dL Assessment and Plan Assessment: acute and chronic congestive heart failure, status post AICD acute cholecystitis Acute kidney injury versus chronic kidney disease, unknown baseline hypertension COPD, not an active issue Plan: this is a pleasant 83 years old female who presents with CHF and cholecystitis. Cardiology service and surgery service for consulted. Continue with Zosyn. Continue with diuretics. Echocardiogram. Labs and medication were reviewed.. Continue same treatment. Continue with symptomatic treatment. Resume home medication. Monitor lytes and vitals. DVT and GI prophylaxis. Further recommendations of the clinical course of the patient DVT prophylaxis: Subcutaneous heparin GI Prophylaxis: Pepcid PT/OT: Pending Prognosis is guarded
--- NOTE | 2019-10-06 10:56 | ECHOF ---
Referral Reason:chf MEASUREMENTS -------- HEIGHT: 157.5 cm WEIGHT: 52.2 kg BP: 124/58 IVSd: 0.8 cm (0.6 - 1.1) LVIDd: 5.1 cm (3.9 - 5.3) LVPWd: 1.0 cm (0.6 - 1.1) IVSs: 0.9 cm LVIDs: 3.9 cm LVPWs: 0.8 cm LAESV Index (A-L): 49.70 ml/m Ao Diam: 2.8 cm (2.0 - 3.7) AV Cusp: 1.0 cm (1.5 - 2.6) LA Diam: 3.7 cm (2.7 - 3.8) MV EXCURSION: 15.618 mm (> 18.000) MV EF SLOPE: 47 mm/s (70 - 150) EPSS: 1.5 cm MV E Ousmane: 1.28 m/s MV DecT: 188 ms MV A Ousmane: 0.34 m/s MV E/A Ratio: 3.75 RAP: 15.00 mmHg RVSP: 54.33 mmHg TAPSE: 19.09 mm FINDINGS -------- Paced rhythm. This was a technically good study. The left ventricular size is normal. Left ventricular wall thickness is normal. Overall left vent ricular systolic function is moderately impaired with, an EF between 35 - 40 %. Left ventricular fi llimg pressure cannot be estimated due to paced rhythm. The right ventricle is normal in size. LA is severely dilated >40 ml/m2 The right atrial size is normal. The aortic valve is trileaflet and appears structurally normal. The mitral valve is normal. Severe mitral regurgitation is present. The tricuspid valve appears structurally normal. Moderate to severe tricuspid regurgitation present . There is moderate pulmonary hypertension. The right ventricular systolic pressure, as measured by Doppler, is 54.33mmHg. There is no pulmonic regurgitation present. The aortic root size is normal. The inferior vena cava is mildly dilated. There is no pericardial effusion. CONCLUSIONS -------- 1. Paced rhythm. 2. This was a technically good study. 3. The left ventricular size is normal. 4. Left ventricular wall thickness is normal. 5. Overall left ventricular systolic function is moderately impaired with, an EF between 35 - 40 %. 6. Left ventricular fillimg pressure cannot be estimated due to paced rhythm. 7. The right ventricle is normal in size. 8. LA is severely dilated >40 ml/m2 9. The right atrial size is normal. 10. The aortic valve is trileaflet and appears structurally normal. 11. The mitral valve is normal. 12. Severe mitral regurgitation is present. 13. The tricuspid valve appears structurally normal. 14. Moderate to severe tricuspid regurgitation present. 15. There is moderate pulmonary hypertension. 16. The right ventricular systolic pressure, as measured by Doppler, is 54.33mmHg. 17. There is no pulmonic regurgitation present. 18. The aortic root size is normal. 19. The inferior vena cava is mildly dilated. 20. There is no pericardial effusion. DIRECTOR ASSET: Simona Landry RDCS
--- NOTE | 2019-10-06 12:41 | P.PN ---
Subjective Progress Note Date: 10/06/19 Patient seen and examined at bedside. States abdominal pain is well-controlled. Denies nausea or vomiting. Objective - Vital Signs Vital signs: Vital Signs Temp 97.7 F 10/06/19 12:00 Pulse 71 10/06/19 12:00 Resp 19 10/06/19 12:00 BP 104/60 10/06/19 12:00 Pulse Ox 99 10/06/19 12:00 Intake & Output 10/05/19 10/06/19 10/06/19 18:59 06:59 18:59 Intake Total 240 240 540 Output Total 600 Balance 240 -360 540 Weight 52.4 kg Intake: Oral 240 240 540 Output: Urine 600 Other: Voiding Method Toilet Toilet Toilet # Voids 1 3 - Constitutional General appearance: Present: cooperative, no acute distress - Respiratory Details: No difficulty with respiration - Gastrointestinal Gastrointestinal Comment(s): Soft, nontender, nondistended, no rebound, no guarding - Musculoskeletal Musculoskeletal: Present: generalized weakness - Psychiatric Psychiatric: Present: A&O x's 3 - Labs CBC & Chem 7: 10/06/19 06:05 10/06/19 06:05 Labs: Abnormal Lab Results - Last 24 Hours (Table) 10/06/19 10/06/19 Range/Units 06:05 06:05 WBC 12.1 H (3.8-10.6) k/uL Neutrophils # 10.8 H (1.3-7.7) k/uL Lymphocytes # 0.5 L (1.0-4.8) k/uL Carbon Dioxide 32 H (22-30) mmol/L BUN 23 H (7-17) mg/dL Creatinine 1.26 H (0.52-1.04) mg/dL Glucose 102 H (74-99) mg/dL Calcium 8.3 L (8.4-10.2) mg/dL Assessment and Plan (1) Acute cholecystitis Narrative/Plan: 83yo with Acute cholecystitis along with CHF exacerbation. Case was discussed with cardiology team. Currently, the patient is undergoing diuresis and will be having cardiac workup with echocardiogram. We will continue diuresis for the next day and plan for surgical intervention with laparoscopic cholecystectomy on as the patient should be cleared from a heart standpoint at that point. The patient was explained the situation and is agreeable to this plan. We will continue with antibiotics. I discussed the case with nursing and we will continue the patient on a full liquid diet until midnight on the day of surgery. Current Visit: Yes Status: Acute Code(s): K81.0 - ACUTE CHOLECYSTITIS SNOMED Code(s): 23864785
--- NOTE | 2019-10-06 14:20 | P.PN ---
Subjective Progress Note Date: 10/06/19 This is a pleasant 83-year-old female with documented history of hypertension, COPD, prior history of smoking, she quit smoking several years ago, history of paroxysmal atrial fibrillation, history of permanent pacemaker implantation. 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 She pre sented to [facility] with symptoms of right upper quadrant discomfort, associated nausea and decreased appetite which she states that she's been experiencing for 3-4 days prior to presenting there. Her symptoms would be aggravated by eating certain foods, such as armenian fries. Her blood pressure on arrival here 122/80 with a heart rate in the 60s, 92% on room air. Laboratory data that was performed at [facility], white blood cell count was 11.8, hemoglobin 13.7, platelet count 254, sodium 1:30, potassium 4.3, BUN 34, creatinine 1.5, AST 101, ALT 133, alk phos 142. Magnesium 2.0, troponin 0.014. EKG showed a ventricular paced rhythm patient underwent a CT of the abdomen and pelvis at [facility] which revealed a probable acute cholecystitis with reactive inflammatory changes in the right upper and mid abdomen. According to the patient, she was transferred here to [facility] for further surgical evaluation, on the ride here she states that she was quite short of breath. She denies having any chest discomfort. Patient was seen by the surgeon this morning with the plan to perform surgery at some point during this admission. Her blood pressure here 132/60 with a heart rate in the 70s, 95% on 4 L of oxygen. White blood cell count here 14.7, 6.5 this morning, hemoglobin 13.2, platelet count 212. INR 1.4. Sodium 134, potassium 3.8, BUN 32, creatinine 1.3. AST 71 this morning, ALT 111, alk phos 108. Troponin 0.015, BNP 6280. Patient was given a one-time dose of IV Lasix, and started on oral diuretics. At the time of my examination this morning her abdominal discomfort is significantly resolved, she is lying flat in bed with no difficulty in breathi ng. She does have bilateral diminished air entry. 10/06/2019 Patient was seen and examined this morning, she did diurese well through the night last night and her breathing is improving significantly. Weight today is down 2 kg. I spoke with Dr. Carmen, the surgeon on her case, the plan is to p neymar with gallbladder surgery in the next 48 hours, likely on . We will continue with the current dose of IV Lasix today. Blood pressure 102/50 with a heart rate in the 50s, 99% on room air. Sodium 140, potassium 4.3, BUN 17, creatinine 0.5. Magnesium 1.8. Objective - Vital Signs Vital signs: Vital Signs Temp 97.7 F 10/06/19 12:00 Pulse 71 10/06/19 12:00 Resp 19 10/06/19 12:00 BP 104/60 10/06/19 12:00 Pulse Ox 99 10/06/19 12:00 Intake & Output 10/05/19 10/06/19 10/06/19 18:59 06:59 18:59 Intake Total 240 240 540 Output Total 600 Balance 240 -360 540 Weight 52.4 kg Intake: Oral 240 240 540 Output: Urine 600 Other: Voiding Method Toilet Toilet Toilet # Voids 1 3 - Exam Gen: This is a 64-year-old female. She is resting in bed and appears to be comfortable and in no acute distress. VS: Patient is afebrile, heart rate 60s-70s, blood pressure 118/72, pulse ox 100% on room air. HEENT: Head is atraumatic, normocephalic. Pupils equal, round. Sclerae is anicteric. NECK: Supple. Positive JVD. No lymphadenopathy. No thyromegaly. LUNGS: Clear to auscultation. No wheezes or rhonchi. No intercostal retractions. No accessory muscle usage. HEART: Regular rate and rhythm. No murmur. ABDOMEN: Soft. Bowel sounds are present. No masses. No tenderness. EXTREMITIES: Trace bilateral pedal edema. No calf tenderness. Dorsalis pedis weak bilaterally. NEUROLOGICAL: Patient is awake, alert and oriented x3. Cranial nerves 2 through 12 are grossly intact. - Labs CBC & Chem 7: 10/06/19 06:05 10/06/19 06:05 Labs: Abnormal Lab Results - Last 24 Hours (Table) 10/06/19 10/06/19 Range/Units 06:05 06:05 WBC 12.1 H (3.8-10.6) k/uL Neutrophils # 10.8 H (1.3-7.7) k/uL Lymphocytes # 0.5 L (1.0-4.8) k/uL Carbon Dioxide 32 H (22-30) mmol/L BUN 23 H (7-17) mg/dL Creatinine 1.26 H (0.52-1.04) mg/dL Glucose 102 H (74-99) mg/dL Calcium 8.3 L (8.4-10.2) mg/dL Assessment and Plan Plan: Assessment and plan #1 right upper quadrant abdominal pain with associated nausea and decreased appetite. CT of the abdomen performed at [place] showed probable acute cholecystitis #2 hypertension #3 prior history of smoking #4 COPD #5 paroxysmal atrial fibrillation, on Xarelto for anticoagulation, currently on hold #6 congestive heart failure, LV function unknown Plan We will give the patient IV Lasix for 24 hours. Xarelto continues to be on hold. Echocardiogram with Doppler study was performed which revealed an ejection fraction of 35-40%, LA is severely dilated, severe mitral regurgitation, moderate to severe tricuspid regurg and moderate pulmonary hypertension. We will discontinue the Cardizem and start the patient on beta cali, EDILBERTO inhibitor, and Aldactone. Further recommendations to follow. DNP note has been reviewed, I agree with a documented findings and plan of care. Patient was seen and examined.
[2019-10-06] MEDS: SPIRONOLACTONE 25 MG TAB PO SCH (15:39)
[2019-10-06] MEDS: METOPROLOL SUCCINATE (ER) 25 MG TAB.ER.24H PO SCH (15:39)
--- NOTE | 2019-10-06 15:56 | CDI ---
Documentation Clarification Form Date: 10/06/2019 03:38:11 PM From: Jennifer Rivas RN CCDS Email: [email or web address] Admit Date: 10/04/2019 10:38:00 PM Patient Name: Lizbet Balderas Visit Number: [id number] Discharge Date: ATTENTION: The Clinical Documentation Specialists (CDI) and [facility] Coding Staff appreciate your assistance in clarifying documentation. Please respond to the clarification below the line at the bottom and electronically sign. The CDI & [facility] Coding staff will review the response and follow-up if needed. Please note: Queries are made part of the Legal Health Record. If you have any questions, please contact the author of this message via ITS. Dr. Perry West Congestive heart failure, LV function unknown is documented in the Cardiology progress note 10/05 History/Risk Factors: 83-year-old female presents to the ED from [facility] for Acute cholecystitis and CHF. Medical history COPD and HTN Clinical Indicators: 10/03 VS/Pulse OX: 137/88 70 98.5 18 92% 2L 10/03 BNP: 6280 10/05 Echocardiogram Results: Left ventricular systolic function is moderately impaired with an EF 35-40%, LA is severely dilated, severe mitral regurgitation, moderate to severe tricuspid regurg and moderate pulmonary hypertension. 10/03 Chest X Ray: Suspect CHF exacerbation as there is cardiomegaly with mild interstitial edema and small bilateral pleural effusions on background chronic parenchymal change. Treatment: 10/03 Lasix 40mg Iv x1, 10/04 Lasix 40mg Po changed to Lasix 40mg Iv Q 12 hrs, Aldactone 25mg Po Daily, Toprol 25mg Po Daily In your professional opinion, can you please clarify the acuity and type of CHF if known? Acute Systolic Heart Failure Acute on Chronic Systolic Heart Failure Acute Systolic & Diastolic Heart Failure Acute on Chronic Systolic & Diastolic Heart Failure Unable to Determine Other, please specify (Last Revision: July 2017) acute on chronic systolic heart failure MTDD
[2019-10-06] MEDS: LORazepam 0.5 MG TAB PO PRN (23:23)
[2019-10-07 06:38] LABS: Albumin 3.3 g/dL (3.5-5.0); Calcium 8.2 mg/dL (8.4-10.2); Magnesium 1.9 mg/dL (1.6-2.3); Potassium 3.5 mmol/L (3.5-5.1); Total Bilirubin 0.8 mg/dL (0.2-1.3); Total Protein 5.7 g/dL (6.3-8.2)
[2019-10-07 06:47] LABS: Basophils % (A) 0 %; Eosinophils # (A) 0.2 k/uL (0-0.7); Eosinophils % (A) 2 %; HCT 45.2 % (34.0-46.0); Hypochromasia Slight; Lymphocytes # (A) 1.6 k/uL (1.0-4.8); Lymphocytes % (A) 16 %; MCH 28.5 pg (25.0-35.0); MCHC 31.1 g/dL (31.0-37.0); MCV 91.8 fL (80.0-100.0); Mean Platelet Volume 8.6; Monocytes # (A) 0.8 k/uL (0-1.0); Monocytes % (A) 8 %; Neutrophils # (A) 7.7 k/uL (1.3-7.7); Neutrophils % (A) 73 %; Platelet Count 195 k/uL (150-450); RBC 4.92 m/uL (3.80-5.40); RDW 13.7 % (11.5-15.5); WBC 10.5 k/uL (3.8-10.6)
[2019-10-07] MEDS: IPRATROPIUM-ALBUTEROL 3 ML NEB INHALATION SCH ×4 (07:04→19:41)
--- NOTE | 2019-10-07 07:44 | P.PN ---
Subjective Progress Note Date: 10/07/19 Patient seen and examined at bedside. Tolerating liquid diet. States abdominal pain has improved. Objective - Vital Signs Vital signs: Vital Signs Temp 96.7 F L 10/07/19 04:00 Pulse 70 10/07/19 07:19 Resp 18 10/07/19 04:00 BP 113/69 10/07/19 04:00 Pulse Ox 98 10/07/19 04:00 Intake & Output 10/06/19 10/07/19 10/07/19 18:59 06:59 18:59 Intake Total 1955 Output Total 1 1000 Balance 1954 -999 Weight 53 kg Intake: Oral 1955 Output: Urine 1 1000 Other: Voiding Method Toilet Toilet # Voids 1 - Constitutional General appearance: Present: cooperative - Respiratory Details: No difficulty with respiration - Gastrointestinal Gastrointestinal Comment(s): Soft, nontender, nondistended, no rebound, no guarding - Psychiatric Psychiatric: Present: A&O x's 3 - Labs CBC & Chem 7: 10/07/19 05:36 10/07/19 05:36 Labs: Abnormal Lab Results - Last 24 Hours (Table) 10/07/19 Range/Units 05:36 Carbon Dioxide 34 H (22-30) mmol/L BUN 18 H (7-17) mg/dL Creatinine 1.35 H (0.52-1.04) mg/dL Glucose 73 L (74-99) mg/dL Calcium 8.2 L (8.4-10.2) mg/dL AST 51 H (14-36) U/L ALT 94 H (4-34) U/L Total Protein 5.7 L (6.3-8.2) g/dL Albumin 3.3 L (3.5-5.0) g/dL Assessment and Plan (1) Acute cholecystitis Narrative/Plan: 83yo with Acute cholecystitis along with CHF exacerbation. Continue with cardiac management Plan for surgical intervention tomorrow afternoon, this was discussed with the patient and the cardiology team and agreed upon Continue full liquid diet and nothing by mouth after midnight Continue IV antibiotics for acute cholecystitis Current Visit: Yes Status: Acute Code(s): K81.0 - ACUTE CHOLECYSTITIS SNOMED Code(s): 80273453
[2019-10-07] MEDS: SPIRONOLACTONE 25 MG TAB PO SCH (09:03)
[2019-10-07] MEDS: METOPROLOL SUCCINATE (ER) 25 MG TAB.ER.24H PO SCH (09:03)
[2019-10-07] MEDS: FLECAINIDE 50 MG TAB PO SCH ×2 (09:03→21:37)
[2019-10-07] MEDS: LISINOPRIL 2.5 MG TAB PO SCH (09:03)
[2019-10-07] MEDS: FUROSEMIDE 10 MG/ML 4 ML VIAL IV SCH (09:04)
[2019-10-07] MEDS: HEPARIN SODIUM,PORCINE 5,000 UNIT/ML 1 ML VIAL SQ SCH ×2 (09:04→21:38)
[2019-10-07] MEDS: FAMOTIDINE 20 MG/2 ML VIAL IV SCH (09:04)
[2019-10-07] MEDS: PIPERACILLIN-TAZOBACTAM 3.375 GM in SODIUM CHLORIDE 0.9% 100 ML IVPB SCH ×2 (09:04→16:52)
--- NOTE | 2019-10-07 10:56 | P.PN ---
Subjective this is a pleasant 83 years old female with past medical history of COPD, hypertension. Patient was transferred from [facility] for possible acute cholecystitis found on CT of the abdomen and pelvis related to abdominal pain/discomfort of 4 day duration. Patient was started on Zosyn however on emergency room at this hospital patient was complaining of from shortness of breath for 2 hours without chest pain.patient was placed on BiPAP and diuretics and this morning patient feels better She is fully awake and oriented, she is breathing quietly on room air, she denies chest pain or abdominal pain or discomfort. No nausea or vomiting. She has loose stool. She quit smoking many years ago, occasional wine. No illicit drugs Vitas looks stable.labs showed leukocytosis of 14.7 K, came back to normal 6.5K. INR 1.4, sodium 134, creatinine 1.3, unknown baseline.liver enzymes are trending down. she is currently on Lasix 40 mg twice daily,Also she is on Zosyn and breathing treatment. cardiology and surgery services were consulted. N.B patient chart was not available to review her [facility] papers, we will follow up 10/06/2019 Patient is fully awake and oriented, no significant dyspnea. No abdominal pain. Vitals are stable Creatinine is 1.26, electrolytes is normal. Cardiology on the case for possible CHF and also we'll ask for preop evaluation. Surgery team are planning for laparoscopic cholecystectomy Xarelto is on hold for possible surgical intervention Discussed with staff and dialysis social worker 10/07/2019 Patient is awake, not really dyspneic. No abdominal pain or tenderness. On examination no really basal crepitation. Her echocardiogram showing infection fraction of 35-40%, severely dilated left atrium and Valvular heart disease,severe MR, moderate to severe TR , moderate pulmonary hypertension. Iron painterxena was placed on Lasix 40 mg IV twice daily while Xarelto on hold for patient may going for Lopressor cholecystectomy tomorrow Objective - Vital Signs Vital signs: Vital Signs Temp 96.7 F L 10/07/19 04:00 Pulse 70 10/07/19 08:00 Resp 16 10/07/19 08:00 BP 104/67 10/07/19 08:00 Pulse Ox 95 10/07/19 08:00 Intake & Output 10/06/19 10/07/19 10/07/19 18:59 06:59 18:59 Intake Total 1956 280 Output Total 1 1000 Balance 1954 -999 280 Weight 53 kg Intake: Oral 1955 280 Output: Urine 1 1000 Other: Voiding Method Toilet Toilet # Voids 1 1 - Exam GENERAL: The patient is alert and oriented x3, not in any acute distress. Well developed, well nourished. HEENT: Pupils are round and equally reacting to light. EOMI. No scleral icterus. No conjunctival pallor. Normocephalic, atraumatic. No pharyngeal erythema. No thyromegaly. CARDIOVASCULAR: S1 and S2 present. No murmurs, rubs, or gallops. PULMONARY: Chest is clear to auscultation, no wheezing or crackles. ABDOMEN: Soft, nontender, nondistended, normoactive bowel sounds. No palpable organomegaly. MUSCULOSKELETAL: No joint swelling or deformity. EXTREMITIES: No cyanosis, clubbing, or pedal edema. NEUROLOGICAL: Gross neurological examination did not reveal any focal deficits. SKIN: No rashes. no petechiae. - Labs CBC & Chem 7: 10/07/19 05:36 10/07/19 05:36 Labs: Abnormal Lab Results - Last 24 Hours (Table) 10/07/19 Range/Units 05:36 Carbon Dioxide 34 H (22-30) mmol/L BUN 18 H (7-17) mg/dL Creatinine 1.35 H (0.52-1.04) mg/dL Glucose 73 L (74-99) mg/dL Calcium 8.2 L (8.4-10.2) mg/dL AST 51 H (14-36) U/L ALT 94 H (4-34) U/L Total Protein 5.7 L (6.3-8.2) g/dL Albumin 3.3 L (3.5-5.0) g/dL Assessment and Plan Assessment: acute and chronic congestive heart failure, status post AICD acute cholecystitis Acute kidney injury versus chronic kidney disease, unknown baseline Valvular heart disease,severe MR, moderate to severe TR moderate pulmonary hypertension hypertension COPD, not an active issue Plan: this is a pleasant 83 years old female who presents with CHF and cholecystitis. Cardiology service and surgery service for consulted. Continue with Zosyn. Continue with diuretics. Echocardiogram. Labs and medication were reviewed.. Continue same treatment. Continue with symptomatic treatment. Resume home medication. Monitor lytes and vitals. DVT and GI prophylaxis. Further recommendations of the clinical course of the patient DVT prophylaxis: Subcutaneous heparin GI Prophylaxis: Pepcid PT/OT: Pending Prognosis is guarded
--- NOTE | 2019-10-07 15:15 | P.PN ---
Subjective Progress Note Date: 10/07/19 This is a pleasant 83-year-old female with documented history of hypertension, COPD, prior history of smoking, she quit smoking several years ago, history of paroxysmal atrial fibrillation, history of permanent pacemaker implantation. 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 She pre sented to [facility] with symptoms of right upper quadrant discomfort, associated nausea and decreased appetite which she states that she's been experiencing for 3-4 days prior to presenting there. Her symptoms would be aggravated by eating certain foods, such as slovak fries. Her blood pressure on arrival here 122/80 with a heart rate in the 60s, 92% on room air. Laboratory data that was performed at [facility], white blood cell count was 11.8, hemoglobin 13.7, platelet count 254, sodium 1:30, potassium 4.3, BUN 34, creatinine 1.5, AST 101, ALT 133, alk phos 142. Magnesium 2.0, troponin 0.014. EKG showed a ventricular paced rhythm patient underwent a CT of the abdomen and pelvis at [facility] which revealed a probable acute cholecystitis with reactive inflammatory changes in the right upper and mid abdomen. According to the patient, she was transferred here to [facility] for further surgical evaluation, on the ride here she states that she was quite short of breath. She denies having any chest discomfort. Patient was seen by the surgeon this morning with the plan to perform surgery at some point during this admission. Her blood pressure here 132/60 with a heart rate in the 70s, 95% on 4 L of oxygen. White blood cell count here 14.7, 6.5 this morning, hemoglobin 13.2, platelet count 212. INR 1.4. Sodium 134, potassium 3.8, BUN 32, creatinine 1.3. AST 71 this morning, ALT 111, alk phos 108. Troponin 0.015, BNP 6280. Patient was given a one-time dose of IV Lasix, and started on oral diuretics. At the time of my examination this morning her abdominal discomfort is significantly resolved, she is lying flat in bed with no difficulty in breathi ng. She does have bilateral diminished air entry. 10/06/2019 Patient was seen and examined this morning, she did diurese well through the night last night and her breathing is improving significantly. Weight today is down 2 kg. I spoke with Dr. Carmen, the surgeon on her case, the plan is to p neymar with gallbladder surgery in the next 48 hours, likely on . We will continue with the current dose of IV Lasix today. Blood pressure 102/50 with a heart rate in the 50s, 99% on room air. Sodium 140, potassium 4.3, BUN 17, creatinine 0.5. Magnesium 1.8. 10/07/2019 Patient was seen and examined today, doing well, breathing is stable, edema has completely resolved. We will discontinue the IV Lasix today and start the patient on oral diuretics. Blood pressure 94/50 with a heart rate in the 70s. White blood cell count 10.5, hemoglobin 14.0, platelet count 195. Sodium 140, potassium 3.5, BUN 18, creatinine 1.3. Objective - Vital Signs Vital signs: Vital Signs Temp 96.7 F L 10/07/19 04:00 Pulse 70 10/07/19 12:00 Resp 16 10/07/19 12:00 BP 94/58 10/07/19 12:00 Pulse Ox 95 10/07/19 12:00 Intake & Output 10/06/19 10/07/19 10/07/19 18:59 06:59 18:59 Intake Total 1955 280 Output Total 1 1000 Balance 1954 -999 280 Weight 53 kg Intake: Oral 1955 280 Output: Urine 1 1000 Other: Voiding Method Toilet Toilet Toilet # Voids 1 1 - Labs CBC & Chem 7: 10/07/19 05:36 10/07/19 05:36 Labs: Abnormal Lab Results - Last 24 Hours (Table) 10/07/19 Range/Units 05:36 Carbon Dioxide 34 H (22-30) mmol/L BUN 18 H (7-17) mg/dL Creatinine 1.35 H (0.52-1.04) mg/dL Glucose 73 L (74-99) mg/dL Calcium 8.2 L (8.4-10.2) mg/dL AST 51 H (14-36) U/L ALT 94 H (4-34) U/L Total Protein 5.7 L (6.3-8.2) g/dL Albumin 3.3 L (3.5-5.0) g/dL Assessment and Plan Plan: Assessment and plan #1 right upper quadrant abdominal pain with associated nausea and decreased appetite. CT of the abdomen performed at [facility] showed probable acute cholecystitis #2 hypertension #3 prior history of smoking #4 COPD #5 paroxysmal atrial fibrillation, on Xarelto for anticoagulation, currently on hold #6 congestive heart failure, LV function unknown Plan We will discontinue the IV Lasix today and change patient over to oral diuretics. She will be tentatively scheduled for gallbladder surgery tomorrow, please give her a beta cali prior to surgery. We'll continue to follow. DNP note has been reviewed, I agree with a documented findings and plan of care. Patient was seen and examined.
[2019-10-07] MEDS: FUROSEMIDE 40 MG TAB PO SCH (16:53)
[2019-10-07] MEDS: LORazepam 0.5 MG TAB PO PRN (21:37)
[2019-10-08] MEDS: PIPERACILLIN-TAZOBACTAM 3.375 GM in SODIUM CHLORIDE 0.9% 100 ML IVPB SCH ×4 (00:53→23:39)
[2019-10-08 07:29] LABS: Basophils # (A) 0.1 k/uL (0-0.2); Basophils % (A) 1 %; Eosinophils # (A) 0.4 k/uL (0-0.7); Eosinophils % (A) 4 %; HCT 50.1 % (34.0-46.0); HGB 15.6 gm/dL (11.4-16.0); Hypochromasia Moderate; Lymphocytes % (A) 20 %; MCH 28.7 pg (25.0-35.0); MCHC 31.2 g/dL (31.0-37.0); MCV 91.9 fL (80.0-100.0); Mean Platelet Volume 8.3; Monocytes % (A) 10 %; Neutrophils # (A) 6.6 k/uL (1.3-7.7); Neutrophils % (A) 63 %; Platelet Count 260 k/uL (150-450); RBC 5.45 m/uL (3.80-5.40); RDW 13.8 % (11.5-15.5); WBC 10.4 k/uL (3.8-10.6)
[2019-10-08] MEDS: IPRATROPIUM-ALBUTEROL 3 ML NEB INHALATION SCH ×4 (07:40→21:05)
[2019-10-08 07:52] LABS: Albumin 3.7 g/dL (3.5-5.0); Calcium 8.8 mg/dL (8.4-10.2); Potassium 3.6 mmol/L (3.5-5.1); Total Protein 6.2 g/dL (6.3-8.2)
[2019-10-08] MEDS: FLECAINIDE 50 MG TAB PO SCH ×2 (08:47→19:42)
[2019-10-08] MEDS: LISINOPRIL 2.5 MG TAB PO SCH (08:47)
[2019-10-08] MEDS: HEPARIN SODIUM,PORCINE 5,000 UNIT/ML 1 ML VIAL SQ SCH ×2 (08:47→19:43)
[2019-10-08] MEDS: METOPROLOL SUCCINATE (ER) 25 MG TAB.ER.24H PO SCH (08:47)
[2019-10-08] MEDS: FUROSEMIDE 40 MG TAB PO SCH ×2 (08:47→19:38)
[2019-10-08] MEDS: SPIRONOLACTONE 25 MG TAB PO SCH (08:50)
[2019-10-08] MEDS: FAMOTIDINE 20 MG/2 ML VIAL IV SCH (08:50)
--- NOTE | 2019-10-08 09:29 | P.PN ---
Subjective this is a pleasant 83 years old female with past medical history of COPD, hypertension. Patient was transferred from [facility] for possible acute cholecystitis found on CT of the abdomen and pelvis related to abdominal pain/discomfort of 4 day duration. Patient was started on Zosyn however on emergency room at this hospital patient was complaining of from shortness of breath for 2 hours without chest pain.patient was placed on BiPAP and diuretics and this morning patient feels better She is fully awake and oriented, she is breathing quietly on room air, she denies chest pain or abdominal pain or discomfort. No nausea or vomiting. She has loose stool. She quit smoking many years ago, occasional wine. No illicit drugs Vitas looks stable.labs showed leukocytosis of 14.7 K, came back to normal 6.5K. INR 1.4, sodium 134, creatinine 1.3, unknown baseline.liver enzymes are trending down. she is currently on Lasix 40 mg twice daily,Also she is on Zosyn and breathing treatment. cardiology and surgery services were consulted. N.B patient chart was not available to review her [facility] papers, we will follow up 10/06/2019 Patient is fully awake and oriented, no significant dyspnea. No abdominal pain. Vitals are stable Creatinine is 1.26, electrolytes is normal. Cardiology on the case for possible CHF and also we'll ask for preop evaluation. Surgery team are planning for laparoscopic cholecystectomy Xarelto is on hold for possible surgical intervention Discussed with staff and social science manager 10/07/2019 Patient is awake, not really dyspneic. No abdominal pain or tenderness. On examination no really basal crepitation. Her echocardiogram showing infection fraction of 35-40%, severely dilated left atrium and Valvular heart disease,severe MR, moderate to severe TR , moderate pulmonary hypertension. Iron jesus was placed on Lasix 40 mg IV twice daily while Xarelto on hold for patient may going for Lopressor cholecystectomy tomorrow 10/08/2019 Patient is going for lap cholecystectomy this afternoon. She is at some risk from surgical intervention however there is no absolute contraindication. Cardi ology is already on the case and optimizing her therapy prior to procedure. We'll keep to follow-up Objective - Vital Signs Vital signs: Vital Signs Temp 97.5 F L 10/08/19 08:00 Pulse 69 10/08/19 08:00 Resp 16 10/08/19 08:00 BP 110/55 10/08/19 08:00 Pulse Ox 94 L 10/08/19 04:00 Intake & Output 10/07/19 10/08/19 10/08/19 18:59 06:59 18:59 Intake Total 395 Balance 395 Weight 50.5 kg Intake: Oral 395 Other: Voiding Method Toilet Toilet # Voids 4 1 - Exam GENERAL: The patient is alert and oriented x3, not in any acute distress. Well developed, well nourished. HEENT: Pupils are round and equally reacting to light. EOMI. No scleral icterus. No conjunctival pallor. Normocephalic, atraumatic. No pharyngeal erythema. No thyromegaly. CARDIOVASCULAR: S1 and S2 present. No murmurs, rubs, or gallops. PULMONARY: Chest is clear to auscultation, no wheezing or crackles. ABDOMEN: Soft, nontender, nondistended, normoactive bowel sounds. No palpable organomegaly. MUSCULOSKELETAL: No joint swelling or deformity. EXTREMITIES: No cyanosis, clubbing, or pedal edema. NEUROLOGICAL: Gross neurological examination did not reveal any focal deficits. SKIN: No rashes. no petechiae. - Labs CBC & Chem 7: 10/08/19 06:28 10/08/19 06:28 Labs: Abnormal Lab Results - Last 24 Hours (Table) 10/08/19 10/08/19 Range/Units 06:28 06:28 RBC 5.45 H (3.80-5.40) m/uL Hct 50.1 H (34.0-46.0) % Chloride 96 L (98-107) mmol/L Carbon Dioxide 33 H (22-30) mmol/L Creatinine 1.57 H (0.52-1.04) mg/dL AST 38 H (14-36) U/L ALT 82 H (4-34) U/L Total Protein 6.2 L (6.3-8.2) g/dL Assessment and Plan Assessment: acute and chronic congestive heart failure, status post AICD acute cholecystitis Acute kidney injury versus chronic kidney disease, unknown baseline Valvular heart disease,severe MR, moderate to severe TR moderate pulmonary hypertension hypertension COPD, not an active issue Plan: this is a pleasant 83 years old female who presents with CHF and cholecystitis. Cardiology service and surgery service for consulted. Continue with Zosyn. Con tinue with diuretics. Echocardiogram. Labs and medication were reviewed.. Continue same treatment. Continue with symptomatic treatment. Resume home medication. Monitor lytes and vitals. DVT and GI prophylaxis. Further recommendations of the clinical course of the patient DVT prophylaxis: Subcutaneous heparin GI Prophylaxis: Pepcid PT/OT: Pending Prognosis is guarded
[2019-10-08] MEDS ORDERED: LACTATED RINGERS 1,000 ML IV ONE (13:27)
[2019-10-08] MEDS ORDERED: DEXAMETHASONE SOD PHOSPHATE 10 MG/ML 1 ML VIAL IV ONE (14:04)
--- NOTE | 2019-10-08 14:58 | P.PN ---
Subjective Progress Note Date: 10/08/19 This is a pleasant 83-year-old female with documented history of hypertension, COPD, prior history of smoking, she quit smoking several years ago, history of paroxysmal atrial fibrillation, history of permanent pacemaker implantation. 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 She pre sented to [facility] with symptoms of right upper quadrant discomfort, associated nausea and decreased appetite which she states that she's been experiencing for 3-4 days prior to presenting there. Her symptoms would be aggravated by eating certain foods, such as croatian fries. Her blood pressure on arrival here 122/80 with a heart rate in the 60s, 92% on room air. Laboratory data that was performed at [facility], white blood cell count was 11.8, hemoglobin 13.7, platelet count 254, sodium 1:30, potassium 4.3, BUN 34, creatinine 1.5, AST 101, ALT 133, alk phos 142. Magnesium 2.0, troponin 0.014. EKG showed a ventricular paced rhythm patient underwent a CT of the abdomen and pelvis at [facility] which revealed a probable acute cholecystitis with reactive inflammatory changes in the right upper and mid abdomen. According to the patient, she was transferred here to [facility] for further surgical evaluation, on the ride here she states that she was quite short of breath. She denies having any chest discomfort. Patient was seen by the surgeon this morning with the plan to perform surgery at some point during this admission. Her blood pressure here 132/60 with a heart rate in the 70s, 95% on 4 L of oxygen. White blood cell count here 14.7, 6.5 this morning, hemoglobin 13.2, platelet count 212. INR 1.4. Sodium 134, potassium 3.8, BUN 32, creatinine 1.3. AST 71 this morning, ALT 111, alk phos 108. Troponin 0.015, BNP 6280. Patient was given a one-time dose of IV Lasix, and started on oral diuretics. At the time of my examination this morning her abdominal discomfort is significantly resolved, she is lying flat in bed with no difficulty in breathi ng. She does have bilateral diminished air entry. 10/06/2019 Patient was seen and examined this morning, she did diurese well through the night last night and her breathing is improving significantly. Weight today is down 2 kg. I spoke with Dr. Carmen, the surgeon on her case, the plan is to p neymar with gallbladder surgery in the next 48 hours, likely on . We will continue with the current dose of IV Lasix today. Blood pressure 102/50 with a heart rate in the 50s, 99% on room air. Sodium 140, potassium 4.3, BUN 17, creatinine 0.5. Magnesium 1.8. 10/07/2019 Patient was seen and examined today, doing well, breathing is stable, edema has completely resolved. We will discontinue the IV Lasix today and start the patient on oral diuretics. Blood pressure 94/50 with a heart rate in the 70s. White blood cell count 10.5, hemoglobin 14.0, platelet count 195. Sodium 140, potassium 3.5, BUN 18, creatinine 1.3. 10/08/2019 Patient was seen and examined this morning, overall doing well. IV Lasix was discontinued and patient is on oral diuretics. Scheduled to undergo surgery for her gallbladder today. We will continue to follow her. Blood pressure 124/70 with a heart rate in the 70s 95% on room air. Objective - Vital Signs Vital signs: Vital Signs Temp 97.5 F L 10/08/19 13:34 Pulse 70 10/08/19 13:34 Resp 16 10/08/19 13:34 BP 124/78 10/08/19 13:34 Pulse Ox 95 10/08/19 13:34 Intake & Output 10/07/19 10/08/19 10/08/19 18:59 06:59 18:59 Intake Total 395 100 Balance 395 100 Weight 50.5 kg Intake: Intake, IV Titration 100 Amount Piperacillin-Tazobactam 3 100 .375 gm In Sodium Chloride 0.9% 100 ml @ 25 mls/hr IVPB Q[facility]HR [facility] Rx# :[id number] Oral 395 Other: Voiding Method Toilet Toilet Toilet # Voids 4 1 - Exam Gen: This is a 64-year-old female. She is resting in bed and appears to be comfortable and in no acute distress. VS: Patient is afebrile, heart rate 60s-70s, blood pressure 118/72, pulse ox 100% on room air. HEENT: Head is atraumatic, normocephalic. Pupils equal, round. Sclerae is anicteric. NECK: Supple. Positive JVD. No lymphadenopathy. No thyromegaly. LUNGS: Clear to auscultation. No wheezes or rhonchi. No intercostal retractions. No accessory muscle usage. HEART: Regular rate and rhythm. No murmur. ABDOMEN: Soft. Bowel sounds are present. No masses. No tenderness. EXTREMITIES: Trace bilateral pedal edema. No calf tenderness. Dorsalis pedis weak bilaterally. NEUROLOGICAL: Patient is awake, alert and oriented x3. Cranial nerves 2 through 12 are grossly intact. - Labs CBC & Chem 7: 10/08/19 06:28 10/08/19 06:28 Labs: Abnormal Lab Results - Last 24 Hours (Table) 10/08/19 10/08/19 Range/Units : 06:28 RBC 5.45 H (3.80-5.40) m/uL Hct 50.1 H (34.0-46.0) % Chloride 96 L (98-107) mmol/L Carbon Dioxide 33 H (22-30) mmol/L Creatinine 1.57 H (0.52-1.04) mg/dL AST 38 H (14-36) U/L ALT 82 H (4-34) U/L Total Protein 6.2 L (6.3-8.2) g/dL Assessment and Plan Plan: Assessment and plan #1 right upper quadrant abdominal pain with associated nausea and decreased appetite. CT of the abdomen performed at [place] showed probable acute cholecystitis #2 hypertension #3 prior history of smoking #4 COPD #5 paroxysmal atrial fibrillation, on Xarelto for anticoagulation, currently on hold #6 congestive heart failure, LV function unknown Plan From cardiology's perspective, we will continue current medications. She scheduled for gallbladder surgery today. DNP note has been reviewed, I agree with a documented findings and plan of care. Patient was seen and examined.
[2019-10-08] MEDS ORDERED: fentaNYL (PF) 50 MCG/ML 2 ML AMP ONE (15:23)
[2019-10-08] MEDS ORDERED: ONDANSETRON 4 MG/2 ML VIAL ONE (15:23)
[2019-10-08] MEDS ORDERED: PROPOFOL 10 MG/ML 20 ML VIAL IV ONE (15:23)
[2019-10-08] MEDS ORDERED: NEOSTIGMINE 1 MG/ML 10 ML VIAL ONE (15:23)
[2019-10-08] MEDS ORDERED: LIDOCAINE 1% INJ 10MG/ML (20 ML MDV) ONE (15:23)
[2019-10-08] MEDS ORDERED: PHENYLEPHRINE-0.9% NACL SYG 1 MG/10 ML SYRINGE ONE (15:23)
[2019-10-08] MEDS ORDERED: DEXAMETHASONE SOD PHOSPHATE 10 MG/ML 1 ML VIAL ONE (15:23)
[2019-10-08] MEDS ORDERED: GLYCOPYRROLATE 0.2 MG/ML 2 ML VIAL ONE (15:23)
[2019-10-08] MEDS ORDERED: ROCURONIUM BROMIDE 10 MG/ML 5 ML VIAL IV ONE (15:23)
[2019-10-08] MEDS ORDERED: SUCCINYLCHOLINE CHLORIDE 100 MG/5 ML SYR IV ONE (15:23)
[2019-10-08] MEDS ORDERED: BUPIVACAIN-EPI 0.25%-1:200,000 30 ML VIAL SQ ONE (15:53)
[2019-10-08] MEDS ORDERED: MORPHINE SULFATE 2 MG/ML SYRINGE IVP PRN (16:08)
--- NOTE | 2019-10-08 16:12 | P.OP ---
Date of Procedure: 10/08/19 Preoperative Diagnosis: Acute cholecystitis Postoperative Diagnosis: Acute cholecystitis Procedure(s) Performed: Laparoscopic cholecystectomy Anesthesia: RENETTA Surgeon: Kerrie Carmen Pathology: other (Gallbladder) Condition: stable Disposition: floor Indications for Procedure: 83-year-old female presented as a transfer from an outside facility secondary to acute cholecystitis. She also was noted to have a CHF exacerbation. She was treated by cardiology for the CHF exacerbation and was cleared for surgery. Plan for laparoscopic cholecystectomy due to acute cholecystitis. The patient was extremely risks, benefits and alternatives to the procedure and did provide consent prior to attending the operating suite. Operative Findings: Distended gallbladder Description of Procedure: The patient was brought into the operating suite and placed in supine position on the operating table. Sedation was provided by anesthesia and the patient underwent endotracheal intubation. The patient was then prepped and draped in regular sterile fashion. A infra umbilical incision was made and dissection was carried to the fascia the fascia was incised and a 12 mm trocar was placed. Pneumoperitoneum was achieved. The patient was then placed in appropriate position. 35 mm ports were placed, one was placed in the subxiphoid location and 2 were placed in the right upper quadrant. The gallbladder was then grasped and retracted. Dissection was carried along the infundibulum of the distended gallbladder. The cystic duct and cystic artery were clearly visualized. Cystic duct was skeletonized. 2 clips were placed proximally and one was placed di stally. The cystic duct was ligated. The cystic artery was skeletonized. 2 clips were placed proximally and one was placed distally and the cystic artery was ligated. Cautery was then used to dissect the gallbladder from the gallbladder fossa on the liver bed. The gallbladder was then placed in an Endo Catch bag and removed from the abdomen from the infraumbilical port site. The patient was then placed in the right upper quadrant and suctioned. Hemostasis was noted to be maintained. The infraumbilical fascial site was closed under direct visualization using a Freddie-Fredrick device and 0 Vicryl suture. Pneumoperitoneum was released and all ports were removed from the abdomen. All skin incision sites were closed with 4-0 Vicryl subcuticular suture. The patient was awakened in the operating suite and taken to postanesthesia care unit in stable condition.
[2019-10-08] MEDS: ACETAMINOPHEN TAB 325 MG TAB PO PRN (19:41)
[2019-10-09 05:16] VITALS: RESP 16; TEMP 98.1
[2019-10-09 06:58] LABS: Basophils % (A) 0 %; Eosinophils % (A) 1 %; HGB 14.7 gm/dL (11.4-16.0); Hypochromasia Slight; Lymphocytes # (A) 0.6 k/uL (1.0-4.8); Lymphocytes % (A) 7 %; MCH 28.4 pg (25.0-35.0); MCHC 31.3 g/dL (31.0-37.0); MCV 90.7 fL (80.0-100.0); Mean Platelet Volume 8.1; Monocytes # (A) 0.3 k/uL (0-1.0); Monocytes % (A) 5 %; Neutrophils # (A) 6.5 k/uL (1.3-7.7); Neutrophils % (A) 87 %; Platelet Count 216 k/uL (150-450); RBC 5.19 m/uL (3.80-5.40); RDW 13.5 % (11.5-15.5); WBC 7.5 k/uL (3.8-10.6)
[2019-10-09] MEDS: IPRATROPIUM-ALBUTEROL 3 ML NEB INHALATION SCH ×2 (07:02→10:43)
[2019-10-09 07:07] LABS: Albumin 3.4 g/dL (3.5-5.0); Calcium 8.8 mg/dL (8.4-10.2); Potassium 4.3 mmol/L (3.5-5.1); Total Bilirubin 0.8 mg/dL (0.2-1.3); Total Protein 5.8 g/dL (6.3-8.2)
[2019-10-09] MEDS: SPIRONOLACTONE 25 MG TAB PO SCH (08:57)
[2019-10-09] MEDS: PIPERACILLIN-TAZOBACTAM 3.375 GM in SODIUM CHLORIDE 0.9% 100 ML IVPB SCH (08:57)
[2019-10-09] MEDS: FLECAINIDE 50 MG TAB PO SCH (08:57)
[2019-10-09] MEDS: HEPARIN SODIUM,PORCINE 5,000 UNIT/ML 1 ML VIAL SQ SCH (08:57)
[2019-10-09] MEDS: FUROSEMIDE 40 MG TAB PO SCH (08:57)
[2019-10-09] MEDS: METOPROLOL SUCCINATE (ER) 25 MG TAB.ER.24H PO SCH (08:57)
[2019-10-09] MEDS: FAMOTIDINE 20 MG/2 ML VIAL IV SCH (08:57)
[2019-10-09 10:33] VITALS: BP 104/57
--- NOTE | 2019-10-09 10:44 | P.PN ---
Subjective Progress Note Date: 10/09/19 Patient seen and examined at bedside. States overall her pain is well- controlled. Denies nausea or vomiting. Objective - Vital Signs Vital signs: Vital Signs Temp 98.1 F 10/09/19 04:00 Pulse 69 10/09/19 04:00 Resp 16 10/09/19 04:00 BP 103/62 10/09/19 04:00 Pulse Ox 96 10/09/19 04:00 Intake & Output 10/08/19 10/08/19 10/09/19 06:59 18:59 06:59 Intake Total 620 Output Total 1005 350 Balance -385 -350 Weight 50.5 kg 50.3 kg Intake: IV 400 Intake, IV Titration 100 Amount Piperacillin-Tazobactam 3 100 .375 gm In Sodium Chloride 0.9% 100 ml @ 25 mls/hr IVPB Q8HR [facility] Rx# :[id number] Oral 120 Output: Urine 1000 350 Estimated Blood Loss 5 Other: Voiding Method Toilet Toilet Toilet # Voids 1 1 - Constitutional General appearance: Present: cooperative, no acute distress - Gastrointestinal Gastrointestinal Comment(s): Soft, appropriate tenderness, nondistended, no rebound, no guarding, incision sites are clean, dry and intact - Psychiatric Psychiatric: Present: A&O x's 3 - Labs CBC & Chem 7: 10/09/19 06:12 10/09/19 06:12 Labs: Abnormal Lab Results - Last 24 Hours (Table) 10/08/19 10/08/19 Range/Units 06:28 06:28 RBC 5.45 H (3.80-5.40) m/uL Hct 50.1 H (34.0-46.0) % Chloride 96 L (98-107) mmol/L Carbon Dioxide 33 H (22-30) mmol/L Creatinine 1.57 H (0.52-1.04) mg/dL AST 38 H (14-36) U/L ALT 82 H (4-34) U/L Total Protein 6.2 L (6.3-8.2) g/dL Assessment and Plan (1) Acute cholecystitis Narrative/Plan: Postoperative day #1, laparoscopic cholecystectomy - Will advance to low-fat diet - Labs reviewed - Increase activity - Surgically stable for discharge - Okay to restart anticoagulation - Follow-up with me in 10-14 days Current Visit: Yes Status: Acute Code(s): K81.0 - ACUTE CHOLECYSTITIS SNOMED Code(s): 12284219
[2019-10-09 10:53] VITALS: PULSE 82
[2019-10-09] MEDS: LISINOPRIL 2.5 MG TAB PO SCH (12:28)
[2019-10-09 13:48] VITALS: BMI 20.2
--- NOTE | 2019-10-09 14:07 | P.PN ---
Subjective Progress Note Date: 10/09/19 This is a pleasant 83-year-old female with documented history of hypertension, COPD, prior history of smoking, she quit smoking several years ago, history of paroxysmal atrial fibrillation, history of permanent pacemaker implantation. 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 She pre sented to [facility] with symptoms of right upper quadrant discomfort, associated nausea and decreased appetite which she states that she's been experiencing for 3-4 days prior to presenting there. Her symptoms would be aggravated by eating certain foods, such as upper sorbian fries. Her blood pressure on arrival here 122/80 with a heart rate in the 60s, 92% on room air. Laboratory data that was performed at [facility], white blood cell count was 11.8, hemoglobin 13.7, platelet count 254, sodium 1:30, potassium 4.3, BUN 34, creatinine 1.5, AST 101, ALT 133, alk phos 142. Magnesium 2.0, troponin 0.014. EKG showed a ventricular paced rhythm patient underwent a CT of the abdomen and pelvis at [facility] which revealed a probable acute cholecystitis with reactive inflammatory changes in the right upper and mid abdomen. According to the patient, she was transferred here to [facility] for further surgical evaluation, on the ride here she states that she was quite short of breath. She denies having any chest discomfort. Patient was seen by the surgeon this morning with the plan to perform surgery at some point during this admission. Her blood pressure here 132/60 with a heart rate in the 70s, 95% on 4 L of oxygen. White blood cell count here 14.7, 6.5 this morning, hemoglobin 13.2, platelet count 212. INR 1.4. Sodium 134, potassium 3.8, BUN 32, creatinine 1.3. AST 71 this morning, ALT 111, alk phos 108. Troponin 0.015, BNP 6280. Patient was given a one-time dose of IV Lasix, and started on oral diuretics. At the time of my examination this morning her abdominal discomfort is significantly resolved, she is lying flat in bed with no difficulty in breathi ng. She does have bilateral diminished air entry. 10/06/2019 Patient was seen and examined this morning, she did diurese well through the night last night and her breathing is improving significantly. Weight today is down 2 kg. I spoke with Dr. Carmen, the surgeon on her case, the plan is to p neymar with gallbladder surgery in the next 48 hours, likely on . We will continue with the current dose of IV Lasix today. Blood pressure 102/50 with a heart rate in the 50s, 99% on room air. Sodium 140, potassium 4.3, BUN 17, creatinine 0.5. Magnesium 1.8. 10/07/2019 Patient was seen and examined today, doing well, breathing is stable, edema has completely resolved. We will discontinue the IV Lasix today and start the patient on oral diuretics. Blood pressure 94/50 with a heart rate in the 70s. White blood cell count 10.5, hemoglobin 14.0, platelet count 195. Sodium 140, potassium 3.5, BUN 18, creatinine 1.3. 10/08/2019 Patient was seen and examined this morning, overall doing well. IV Lasix was discontinued and patient is on oral diuretics. Scheduled to undergo surgery for her gallbladder today. We will continue to follow her. Blood pressure 124/70 with a heart rate in the 70s 95% on room air. 10/09/2019 Patient was seen and examined this morning, underwent a laparoscopic cholecystectomy yesterday. She was seen and examined this morning overall feeling well. Denies any chest pain, breathing is stable, no abdominal discomfort. Blood pressure 104/50 with a heart rate in the 70s, 94% on room air. White blood cell count 7.5, hemoglobin 14.7, platelet count 216. Sodium 134, potassium 4.3 BUN 21, creatinine 1.4. Objective - Vital Signs Vital signs: Vital Signs Temp 98.1 F 10/09/19 08:00 Pulse 82 10/09/19 10:53 Resp 16 10/09/19 08:00 BP 104/57 10/09/19 08:00 Pulse Ox 94 L 10/09/19 08:00 Intake & Output 10/08/19 10/09/19 10/09/19 18:59 06:59 18:59 Intake Total 620 980 Output Total 1005 350 Balance -385 -350 980 Weight 50.3 kg 50.3 kg Intake: IV 400 Intake, IV Titration 100 180 Amount Lactated Ringers 1,000 ml 80 @ 0 mls/hr IV .[facility] Rx#:[id number] Piperacillin-Tazobactam 3 100 100 .375 gm In Sodium Chloride 0.9% 100 ml @ 25 mls/hr IVPB Q8HR [facility] Rx# :[id number] Oral 120 800 Output: Urine 1000 350 Estimated Blood Loss 5 Other: Voiding Method Toilet Toilet Toilet # Voids 1 - Exam Gen: This is a 64-year-old female. She is resting in bed and appears to be comfortable and in no acute distress. VS: Patient is afebrile, heart rate 60s-70s, blood pressure 118/72, pulse ox 100% on room air. HEENT: Head is atraumatic, normocephalic. Pupils equal, round. Sclerae is anicteric. NECK: Supple. Positive JVD. No lymphadenopathy. No thyromegaly. LUNGS: Clear to auscultation. No wheezes or rhonchi. No intercostal retractions. No accessory muscle usage. HEART: Regular rate and rhythm. No murmur. ABDOMEN: Soft. Bowel sounds are present. No masses. No tenderness. EXTREMITIES: Trace bilateral pedal edema. No calf tenderness. Dorsalis pedis weak bilaterally. NEUROLOGICAL: Patient is awake, alert and oriented x3. Cranial nerves 2 through 12 are grossly intact. - Labs CBC & Chem 7: 10/09/19 06:12 10/09/19 06:12 Labs: Abnormal Lab Results - Last 24 Hours (Table) 10/09/19 10/09/19 Range/Units 06:12 06:12 Hct 47.0 H (34.0-46.0) % Lymphocytes # 0.6 L (1.0-4.8) k/uL Sodium 134 L (137-145) mmol/L BUN 21 H (7-17) mg/dL Creatinine 1.40 H (0.52-1.04) mg/dL Glucose 117 H (74-99) mg/dL AST 39 H (14-36) U/L ALT 68 H (4-34) U/L Total Protein 5.8 L (6.3-8.2) g/dL Albumin 3.4 L (3.5-5.0) g/dL Assessment and Plan Plan: Assessment and plan #1 acute cholecystitis, status post laparoscopic cholecystectomy #2 hypertension #3 prior history of smoking #4 COPD #5 paroxysmal atrial fibrillation, on Xarelto for anticoagulation, currently on hold #6 congestive heart failure, systolic acute on chronic Plan From cardiology's perspective, patient may be able to be discharged home, we'll make a follow-up appointment in the office with Dr. West post discharge. DNP note has been reviewed, I agree with a documented findings and plan of care. Patient was seen and examined.
--- NOTE | 2019-10-10 00:02 | P.DS ---
Providers Date of admission: 10/04/19 22:38 Attending physician: Cristin Zacarias Consults: 10/04/19 23:24 Consult Physician Stat Consulting Provider: Kerrie Carmen Consult Reason/Comments: acute cholecystitis Do you want consulting provider notified?: Yes Consult Physician Stat Consulting Provider: Floyd Hunter Consult Reason/Comments: CHF exacerbation, acute cholecystitis Do you want consulting provider notified?: Yes Primary care physician: Janiya Rucker Hospital Course: Diagnoses: acute and chronic congestive heart failure, status post AICD acute cholecystitis Acute kidney injury versus chronic kidney disease, unknown baseline Valvular heart disease,severe MR, moderate to severe TR moderate pulmonary hypertension hypertension COPD, not an active iss Hospital course: this is a pleasant 83 years old female with past medical history of COPD, hypertension. Patient was transferred from [facility] for possible acute cholecystitis found on CT of the abdomen and pelvis related to abdominal pain/discomfort of 4 day duration. Patient was started on Zosyn however on emergency room at this hospital patient was complaining of from shortness of breath for 2 hours without chest pain.patient was placed on BiPAP and diuretics and she felt better. Patient evaluated by it analyst, she was treated with IV diuretics which to oral diuretic prior to her surgery. Patient underwent laparoscopic cholecystectomy on 10/[address] Carmen. Postoperatively patient remained stable, her dyspnea is improved, no chest pain. No abdominal pain other than expected from surgery. She was tolerating diet. Xarelto was resumed Patient was cleared for discharge by cardiology and surgical services Problems and management plan were discussed with the patient and he verbalized understanding and acceptance Patient was found stable and can be discharged home however he needs follow-up as an outpatient. Patient was instructed to follow up with PCP within one week and patient agrees, also patient agrees with the appointments made for her on 10/11 with scheduled follow-up. Dr. Carmen office was closed today's appointment could not make, patient agrees to call and make her own appointment as well as with her it analyst Dr. Fatima in one Gen: patient is a AAOx3, no distress CVS: S1-S2, RRR, no murmur Lungs: B/L CTA, no wheezing -Abdomen: soft, no distention, no tenderness, positive bowel sounds. Surgical wound is closed and dry Extremity: no leg edema or induration Time spent more than 35 minutes Patient Condition at Discharge: Serious Plan - Discharge Summary Discharge Rx Participant: No New Discharge Prescriptions: New Acetaminophen-Codeine 300-30mg [Tylenol w/codeine #3] 1 tab PO Q6H PRN 3 Days #12 tablet PRN Reason: Pain Spironolactone [Aldactone] 25 mg PO DAILY #30 tab Furosemide [Lasix] 40 mg PO BID@0900,1600 #60 tab Metoprolol Succinate (ER) [Toprol XL] 25 mg PO DAILY #30 tab.er.24h Lisinopril [Zestril] 2.5 mg PO DAILY@1200 #30 tab Continue Rivaroxaban [Xarelto] 15 mg PO W/SUPPER Flecainide Acetate [Tambocor] 100 mg PO Q12HR Discontinued Furosemide [Lasix] 40 mg PO DAILY Diltiazem HCl [Diltiazem HCl 24Hr ER] 180 mg PO DAILY Discharge Medication List Flecainide Acetate [Tambocor] 100 mg PO Q12HR 10/04/19 [History] Rivaroxaban [Xarelto] 15 mg PO W/SUPPER 10/04/19 [History] Acetaminophen-Codeine 300-30mg [Tylenol w/codeine #3] 1 tab PO Q6H PRN 3 Days #12 tablet 10/09/19 [Rx] Furosemide [Lasix] 40 mg PO BID@0900,1600 #60 tab 10/09/19 [Rx] Lisinopril [Zestril] 2.5 mg PO DAILY@1200 #30 tab 10/09/19 [Rx] Metoprolol Succinate (ER) [Toprol XL] 25 mg PO DAILY #30 tab.er.24h 10/09/19 [Rx] Spironolactone [Aldactone] 25 mg PO DAILY #30 tab 10/09/19 [Rx] Follow up Appointment(s)/Referral(s): Janiya Rucker MD [Primary Care Provider] - 10/12/19 11:00 am Kerrie Carmen DO [Doctor of Osteopathic Medicine] - 1 Week (please call and set up your follow up appointment on Saturday) Perry West MD [STAFF PHYSICIAN] - 2 Weeks (call and set up follow up appointment if you decide to follow with Dr West) Patient Instructions/Handouts: *Surgery [facility] - Laparoscopic Cholecystectomy Discharge Instructions, *[facility] - ([facility]) Laparoscopic Cholecystectomy, Heart Failure (DC) Activity/Diet/Wound Care/Special Instructions: Heart healthy diet Activity is limited till you see your doctor Discharge Disposition: HOME SELF-CARE
== END 2019-10-09 14:00 | disposition home or self-care (01) | DRG 417 ==
LOC: EC 19:42 → 3SCARD 22:38
PROVIDERS: ADMIT Internal Medicine; ATTEND Internal Medicine
PROC: 0FT44ZZ Resection of Gallbladder, Percutaneous Endoscopic Approach (ICD-10-PCS; principal; 2019-10-08 14:15)
DX: K81.0 Acute cholecystitis (principal); I50.23 Acute on chronic systolic (congestive) heart failure; N17.9 Acute kidney failure, unspecified; I13.0 Hypertensive heart and chronic kidney disease with heart failure and stage 1 through stage 4 chronic kidney disease, or unspecified chronic kidney disease; J44.9 Chronic obstructive pulmonary disease, unspecified; I48.0 Paroxysmal atrial fibrillation; I27.20 Pulmonary hypertension, unspecified; N18.9 Chronic kidney disease, unspecified; I08.1 Rheumatic disorders of both mitral and tricuspid valves; Z11.59 Encounter for screening for other viral diseases; Z90.710 Acquired absence of both cervix and uterus; Z79.899 Other long term (current) drug therapy; Z79.01 Long term (current) use of anticoagulants; Z95.810 Presence of automatic (implantable) cardiac defibrillator; Z87.891 Personal history of nicotine dependence
CPT/HCPCS: 36415; 71046; 80048; 80053; 83690; 83735; 83880; 84484; 85025; 85610; 85730; 88304; 93005; 93306; 94640; 94660; 94760; 96374; 96375; 99285